=== PATIENT | male | born 1950 | race Caucasian/White ===

== ENCOUNTER 2023-05-28 10:51 | Outpatient (AMB) | payer OTHER, SELFPAY ==
--- NOTE | 2023-05-28 11:05 | MHC.PC.OV ---
Vital Signs 05/28/23 11:06 Height 5 ft 9 in Weight 182 lb BMI 26.9 BP 110/62 Blood Pressure Location Rt brachial Position Sitting Pulse 69 Pulse Source Pulse Oximeter Pulse Oximetry (%) 97 Oxygen Delivery Method Room Air Intake Visit Reasons: Discuss Medical Concerns Intake Note: Pt is here today for a follow up visit. Allergies No Known Allergies Allergy (Verified 05/28/23 11:09) Medication List - Last Reconciled 05/28/23 by Leni Resendez MD aspirin (Adult Low Dose Aspirin) 81 mg PO DAILY ketoconazole 2% 1 appl topical 3XW lisinopril 5 mg PO DAILY metoprolol tartrate 12.5 mg PO BID pantoprazole 20 mg PO DAILY rosuvastatin 10 mg PO DAILY Tobacco use date assessed: 05/28/23 Fall risk assessment: No Falls in past year Last assessed Fall Risk: 05/28/23 Dental Screening Dental Screen Date: 05/28/23 Did you have a dental visit in the last 12 months?: Yes Did you have a dental problem in the last 6 months where you did not have access to dental care?: No Was dental information given to patient?: Patient has dentist HPI Discuss Medical Concerns HPI Details Patient presents for the follow-up on hypertension hyperlipidemia, he complains of chronic bilateral lower extremities cramps and pain after walking longer distance. Patient denies any weakness or numbness in lower extremities but reports chronic lower back discomfort and stiffness after prolonged rest. [facility] Medical History (Updated 05/28/23 @ 11:41 by Leni Resendez MD) CAD (coronary artery disease) Knee pain, bilateral Knee pain BPH (benign prostatic hyperplasia) Thyroid nodule Goiter Hyperlipidemia HTN (hypertension) MGUS (monoclonal gammopathy of unknown significance) Low back pain Surgical History H/O colonoscopy Family History Father No problems noted. Mother No problems noted. Social History Housing: House Alcohol intake: never Patient Tobacco Use Status: Never used Tobacco e-Cigarette/Vaping Use: Never Used Current occupational status: employed Cognitive needs: No Hearing needs: No Vision needs: Yes Questionnaire PHQ-9 Over the last 2 weeks, how often have you been bothered by any of the following problems? 1. Little interest or pleasure in doing things: not at all 2. Feeling down, depressed, or hopeless: not at all 3. Trouble falling or staying asleep, or sleeping too much: not at all 4. Feeling tired or having little energy: not at all 5. Poor appetite or overeating: not at all 6. Feeling bad about yourself - or that you are a failure or have let yourself or your family down: not at all 7. Trouble concentrating on things, such as reading the newspaper or watching television: not at all 8. Moving or speaking so slowly that other people could have noticed. Or the opposite - being so fidgety or restless that you have been moving around a lot more than usual: not at all 9. Thoughts that you would be better off or of hurting yourself in some way: not at all Total score: 0 Depression Screening Interpretation: Negative Depression Screening Done: Yes Source: Developed by Drs. Oscar Mccray, Liliam Chicas, Nilesh Hernandez and colleagues, with an educational bhumika from [email or web address]. Thrive Questionnaire Date Thrive assessed: 05/28/23 I am a: Patient What is your living situation today?: I have a steady place to live Within the past 12 months, did the food you bought not last and you didn't have the money to get more?: Never true Within the past 12 months, did you worry whether your food would run out before you got money to buy more?: Never true Do you have trouble paying for medicines?: No Do you have trouble getting transportation to medical appointments?: No Do you have trouble paying your heating and electricity bill?: No Do you have trouble taking care of your child, family member or friend?: No Do you have trouble with day-to-day activities such as bathing, preparing meals, shopping, managing finances, etc.?: No Are you currently unemployed and looking for a job?: No Are you interested in more education?: No Please select the resources that you would like help with: None Currently or been in a relationship where the following occur: no concerns reported AUDIT C Alcohol Use Questionnaire (AUDIT-C) 1. How often do you have a drink containing alcohol?: Never 3. How often do you have six or more drinks on one occasion?: Never Total Score: 0 JEM-7 AMB Questionnaire JEM-7 Date JEM - 7 assessed: 05/28/23 Feeling nervous, anxious, or on edge: 0 = Not at all Not being able to stop or control worryin = Not at all Worrying too much about different things: 0 = Not at all Trouble relaxin = Not at all Being so restless that it is hard to sit still: 0 = Not at all Becoming easily annoyed or irritable: 0 = Not at all Feeling afraid as if something awful might happen: 0 = Not at all Total JEM-7 score (0-4 normal; 5-9 mild; 10-14 moderate; 15-21 severe): 0 Source: Developed by Drs. Oscar Mccray, Liliam Chicas, Nilesh Hernandez and colleagues, with an educational bhumika from [email or web address]. Review of Systems Const All systems reviewed & are unremarkable except as noted in HPI and below Reports no additional complaints Eyes Reports no additional complaints ENT Reports no additional complaints Card Reports no additional complaints Resp Reports no additional complaints GI Reports no additional complaints Reports no additional complaints Physical exam (Primary Care) Vital Signs: Last Vital Signs Pulse 69 05/28/23 11:06 BP 110/62 05/28/23 11:06 Pulse Ox 97 05/28/23 11:06 Oxygen Delivery Method Room Air 05/28/23 11:06 BMI result Body Mass Index 26.9 Tobacco/Smoking Status: Tobacco use Status Tobacco use date assessed 05/28/23 05/28/23 11:12 Patient Tobacco Use Status Never used Tobacco 05/28/23 11:12 e-Cigarette/Vaping Use Never Used 05/28/23 11:08 PHQ-9: PHQ-9 Score PHQ-9: Total score 0 05/28/23 11:42 Depression Screening Interpretation: Negative Thrive Assessment: Date of Thrive Assessment Date Thrive assessed 05/28/23 05/28/23 11:12 Currently or been in a relationship where the following occur: no concerns reported Const General: no acute distress HENMT Head: Yes normal to inspection Throat: Yes posterior oropharynx normal Eyes General: appearance normal, both eyes and all related structures Neck Neck: Yes no lymphadenopathy and Yes supple Resp Effort & Inspection: normal respiratory effort Auscultation: clear to auscultation bilaterally Cardio Rhythm: regular rhythm Heart sounds: S1 normal heart sound present and S2 normal heart sound present Peripheral pulses: posterior tibial pulses present (weak bilateral ) GI Inspection: Yes normal to inspection Palpation (GI): Soft to palpation Assessment and Plan Assessment & Plan (1) Hyperglycemia: Code(s): R73.9 - Hyperglycemia, unspecified Plan: ADA diet regular physical activity discussed with the patient check A1c and return in 6 months for physical (2) Thyroid nodule: Comment: s/p BX 2019, f/u Dr. Chang Code(s): E04.1 - Nontoxic single thyroid nodule Plan: Follow-up with endocrinology (3) Annual physical exam: Code(s): Z00.00 - Encounter for general adult medical examination without abnormal findings (4) CAD (coronary artery disease): Comment: s/p CATARINO for LCx 12/2019. f/u [facility] Code(s): I25.10 - Atherosclerotic heart disease of [place] coronary artery without angina pectoris Plan: Continue current medications (5) Claudication: Code(s): I73.9 - Peripheral vascular disease, unspecified Plan: Obtain arterial Doppler to evaluate for peripheral vascular disease Orders: Orders Comprehensive [place]. Panel Fast Today E04.1 - Nontoxic single thyroid nodule, I25.10 - Atherosclerotic heart disease of [place] coronary artery without angina pectoris, R73.9 - Hyperglycemia, unspecified, Z00.00 - Encounter for general adult medical examination without abnormal findings PSA,Total (Free>4and<10) Today E04.1 - Nontoxic single thyroid nodule, I25.10 - Atherosclerotic heart disease of [place] coronary artery without angina pectoris, R73.9 - Hyperglycemia, unspecified, Z00.00 - Encounter for general adult medical examination without abnormal findings Hemoglobin A1c Today E04.1 - Nontoxic single thyroid nodule, I25.10 - Atherosclerotic heart disease of [place] coronary artery without angina pectoris, R73.9 - Hyperglycemia, unspecified, Z00.00 - Encounter for general adult medical examination without abnormal findings Microalbumin, Random (w Creat) Today E04.1 - Nontoxic single thyroid nodule, I25.10 - Atherosclerotic heart disease of [place] coronary artery without angina pectoris, R73.9 - Hyperglycemia, unspecified, Z00.00 - Encounter for general adult medical examination without abnormal findings US arterial duplex LE BI Today I73.9 - Peripheral vascular disease, unspecified Lipid Panel Today E04.1 - Nontoxic single thyroid nodule, I25.10 - Atherosclerotic heart disease of [place] coronary artery without angina pectoris, R73.9 - Hyperglycemia, unspecified, Z00.00 - Encounter for general adult medical examination without abnormal findings Complete Blood Count Auto Diff Today E04.1 - Nontoxic single thyroid nodule, I25.10 - Atherosclerotic heart disease of [place] coronary artery without angina pectoris, R73.9 - Hyperglycemia, unspecified, Z00.00 - Encounter for general adult medical examination without abnormal findings Coding Level of Care Code Est Pt Level 4 (58511) Diagnoses Hyperglycemia R73.9 Thyroid nodule E04.1 Annual physical exam Z00.00 CAD (coronary artery disease) I25.10 Claudication I73.9
[2023-05-28 11:06] VITALS: BP 110/62; PULSE 69; O2SAT 97; BMI 26.9
== END 2023-05-28 12:19 | disposition home or self-care (01) ==
PROVIDERS: PCP Internal Medicine; Visit Provider Internal Medicine
DX: R73.9 Hyperglycemia, unspecified (principal); E04.1 Nontoxic single thyroid nodule; I73.9 Peripheral vascular disease, unspecified; Z00.00 Encounter for general adult medical examination without abnormal findings; I25.10 Atherosclerotic heart disease of native coronary artery without angina pectoris
CPT/HCPCS: 99214

== ENCOUNTER 2023-06-28 07:56 | Outpatient (REF) | payer OTHER, SELFPAY ==
[2023-06-28 11:35] LABS: MANUAL DIFF FLAG NO
[2023-06-28 11:38] LABS: Basophils Percent Auto 0.6 % (0-2); Eosinophils Absolute Auto 0.3 X10*3/uL (0.0-0.4); Eosinophils Percent Auto 4.5 % (0-4); Hematocrit 42.2 % (42.0-52.0); Hemoglobin 14.2 g/dl (14.0-18.0); Imm Gran Abs Auto 0.01 X10*3/uL (0.00-0.03); Imm Gran Pct Auto 0.2 % (0.0-0.4); Lymphocytes Percent Auto 31.2 % (20-40); Mean Corpuscular HGB Conc 33.6 g/dl (31.0-36.0); Mean Corpuscular Hemoglobin 30.1 pg (27.0-33.0); Mean Corpuscular Volume 89.4 fL (80.0-98.0); Mean Platelet Volume 11.4 fL (9.4-12.4); Monocytes Absolute Auto 0.5 X10*3/uL (0.1-1.2); Monocytes Percent Auto 7.2 % (2-11); Neutrophils Absolute Auto 3.5 x10*3/uL (2.0-8.3); Neutrophils Percent Auto 56.3 % (45-73); Platelet Count 200 X10*3/uL (160-400); Red Blood Count 4.72 X10*6/uL (4.60-5.80); Red Cell Distribution Width 12.1 % (11.0-16.0); White Blood Count 6.3 X10*3/uL (4.8-10.8)
[2023-06-28 11:46] LABS: Estimated Average Glucose 117 mg/dL; Hemoglobin A1c % 5.7 % (<6.0)
[2023-06-28 12:18] LABS: Alanine Aminotransferase 32 U/L (0-40); Albumin Level 4.2 g/dL (3.5-5.0); Alkaline Phosphatase 67 U/L (39-117); Anion Gap 12 (12-20); Aspartate Amino Transferase 29 U/L (5-37); Bilirubin Total 0.7 mg/dL (0.0-1.0); Blood Urea Nitrogen 13 mg/dL (9-16); Calcium 9.5 mg/dL (8.4-10.2); Carbon Dioxide 25 mmol/L (22-29); Chloride 106 mmol/L (96-108); Cholesterol 150 mg/dL (<200); Estimated Glomerular Filt Rate > 60; Glucose Fasting 95 mg/dL (60-99); HDL Cholesterol 47 mg/dL (>40); LDL Cholesterol Calculated 90 mg/dL (<100); PSA,Total (Free>4and<10) 3.23 ng/mL (0.00-4.00); Potassium 4.1 mmol/L (3.3-5.1); Sodium 139 mmol/L (135-145); Total Protein 7.7 g/dL (6.5-8.0); Triglycerides 67 mg/dL (<150)
[2023-06-28 12:28] LABS: TSH reflex Free T4 0.83 uIU/mL (0.32-4.0)
[2023-06-28 12:34] LABS: Creatinine Urine 110.92 mg/dL; Microalbum/Creatinine Ratio Ur 8.1 ug/mg cr (<30)
== END 2023-06-28 07:57 | disposition home or self-care (01) ==
LOC: HO.HMGCLDS 07:56
PROVIDERS: PCP Internal Medicine; Referring Provider Internal Medicine; Visit Provider Internal Medicine
DX: Z00.00 Encounter for general adult medical examination without abnormal findings (principal); Z12.5 Encounter for screening for malignant neoplasm of prostate; R73.9 Hyperglycemia, unspecified; I25.10 Atherosclerotic heart disease of native coronary artery without angina pectoris; E04.1 Nontoxic single thyroid nodule
CPT/HCPCS: 36415; 80053; 80061; 82043; 82570; 83036; 84153; 84443; 85025

== ENCOUNTER 2023-07-01 10:21 | Outpatient (REF) | payer OTHER, SELFPAY ==
--- NOTE | ~2023-07-01 | US_ITS ---
EXAMINATION: NONINVASIVE ASSESSMENT OF THE ARTERIES OF BOTH LOWER EXTREMITIES INCLUDING BILATERAL LOWER EXTREMITY DUPLEX. CLINICAL INFORMATION: Peripheral vascular disease COMPARISON: None TECHNIQUE: duplex Doppler techniques with wave form analysis and measurement of velocities in the common femoral, profunda femoral, superficial femoral, popliteal, tibial and peroneal arteries. The study was performed only at rest. FINDINGS: RIGHT LEG Common femoral artery: 95 cm/s, Multiphasic Profunda femoris artery: 63 cm/s, Multiphasic Superficial femoral artery (proximal): 93 cm/s, Multiphasic Superficial femoral artery (mid): 105 cm/s, Multiphasic Superficial femoral artery (distal): 95 cm/s, Multiphasic Proximal Popliteal artery: 61 cm/s, Multiphasic Mid posterior tibial artery: 106 cm/s, Multiphasic LEFT LEG: Common femoral artery: 107 cm/s, Multiphasic Profunda femoris artery: 83 cm/s, Multiphasic Superficial femoral artery (proximal): 95 cm/s, Multiphasic Superficial femoral artery (mid): 103 cm/s, Multiphasic Superficial femoral artery (distal): 83 cm/s, Multiphasic Proximal Popliteal artery: 67 cm/s, Multiphasic Mid posterior tibial artery: 104 cm/s, Multiphasic US/US arterial duplex LE BI IMPRESSION: No hemodynamically significant stenosis in the bilateral lower extremities.
== END 2023-07-01 10:22 | disposition home or self-care (01) ==
LOC: HO.US 10:21
PROVIDERS: PCP Internal Medicine; Visit Provider Internal Medicine
DX: I73.9 Peripheral vascular disease, unspecified (principal)
CPT/HCPCS: 93925

== ENCOUNTER 2024-02-12 11:58 | Outpatient (AMB) | payer OTHER, SELFPAY ==
[2024-02-12 12:23] VITALS: BP 112/66; PULSE 62; O2SAT 96; BMI 26.5
--- NOTE | 2024-02-12 12:23 | A.OFFPC_ITS ---
Vital Signs 02/12/24 12:23 Height 5 ft 9 in Weight 179 lb 4 oz BMI 26.5 BP 112/66 Blood Pressure Location Rt brachial Position Sitting Pulse 62 Pulse Source Pulse Oximeter Pulse Oximetry (%) 96 Oxygen Delivery Method Room Air Intake Visit Reasons: PE Allergies No Known Allergies Allergy (Verified 02/12/24 12:24) Medication List - Last Reconciled 02/12/24 by Leni Resendez MD aspirin (Adult Low Dose Aspirin) 81 mg PO DAILY ketoconazole 2% 1 appl topical 3XW lisinopril 5 mg PO DAILY metoprolol tartrate 12.5 mg PO BID pantoprazole 20 mg PO DAILY rosuvastatin 10 mg PO DAILY Tobacco use date assessed: 02/12/24 Fall risk assessment: No Falls in past year Last assessed Fall Risk: 02/12/24 Dental Screening Dental Screen Date: 02/12/24 Did you have a dental visit in the last 12 months?: Yes Did you have a dental problem in the last 6 months where you did not have access to dental care?: No Was dental information given to patient?: Patient has dentist HPI PE HPI Details Pt presents for PE. Pt reports intermitent leg cramps up to 2 a week. Pt reports episodes of feeling anxious and nightmares 2 x a month. Pt denies depression or insomnia. PFSH Medical History CAD (coronary artery disease) Knee pain, bilateral Knee pain BPH (benign prostatic hyperplasia) Thyroid nodule Goiter Hyperlipidemia HTN (hypertension) MGUS (monoclonal gammopathy of unknown significance) Low back pain Surgical History H/O colonoscopy Family History Father No problems noted. Mother No problems noted. Social History Housing: House Alcohol intake: never Patient Tobacco Use Status: Never used Tobacco e-Cigarette/Vaping Use: Never Used Current occupational status: employed Cognitive needs: No Hearing needs: No Vision needs: Yes Questionnaire Thrive Questionnaire Date Thrive assessed: 05/28/23 AUDIT C Alcohol Use Questionnaire (AUDIT-C) 1. How often do you have a drink containing alcohol?: Never 3. How often do you have six or more drinks on one occasion?: Never Total Score: 0 Score Reviewed/Action Taken: Yes JEM-7 AMB Questionnaire JEM-7 Date JEM - 7 assessed: 05/28/23 Source: Developed by Drs. Oscar Mccray, Liliam Chicas, Nilesh Hernandez and colleagues, with an educational bhumika from [employer]. Review of Systems Const All systems reviewed & are unremarkable except as noted in HPI and below Reports no additional complaints Eyes Reports no additional complaints ENT Reports no additional complaints Card Reports no additional complaints Resp Reports no additional complaints GI Reports no additional complaints Reports no additional complaints Physical exam (Primary Care) Vital Signs: Last Vital Signs Pulse 62 02/12/24 12:23 BP 112/66 02/12/24 12:23 Pulse Ox 96 02/12/24 12:23 Oxygen Delivery Method Room Air 02/12/24 12:23 BMI result Body Mass Index 26.5 Tobacco/Smoking Status: Tobacco use Status Tobacco use date assessed 02/12/24 02/12/24 12:25 Patient Tobacco Use Status Never used Tobacco 02/12/24 12:25 e-Cigarette/Vaping Use Never Used 02/12/24 12:25 Thrive Assessment: Date of Thrive Assessment Date Thrive assessed 05/28/23 02/12/24 12:25 Const General: no acute distress HENMT Head: Yes normal to inspection General nose exam: Normal external nose present Throat: Yes posterior oropharynx normal Eyes General: appearance normal, both eyes and all related structures Neck Neck: Yes no lymphadenopathy and Yes supple Resp Effort & Inspection: normal respiratory effort Auscultation: clear to auscultation bilaterally Cardio Rhythm: regular rhythm Heart sounds: S1 normal heart sound present and S2 normal heart sound present GI Inspection: Yes normal to inspection Palpation (GI): Soft to palpation Percussion: Yes normal to percussion Auscultation: normal bowel sounds Extrem General: Yes no clubbing, cyanosis or edema Assessment and Plan Assessment & Plan (1) Annual physical exam: Code(s): Z00.00 - Encounter for general adult medical examination without abnormal findings Plan: well balanced diet, regular exercise, up to date with colonoscopy (2) Hyperglycemia: Code(s): R73.9 - Hyperglycemia, unspecified Plan: ADA diet, exercise, repeat A1C (3) CAD (coronary artery disease): Comment: s/p CATARINO for LCx 12/2019. f/u [facility] Cardiology Code(s): I25.10 - Atherosclerotic heart disease of [place] coronary artery without angina pectoris Plan: f/u with cardiology (4) MGUS (monoclonal gammopathy of unknown significance): Comment: f/u Hematology MMG Code(s): D47.2 - Monoclonal gammopathy Plan: f/u with hematology (5) Anxiety: Code(s): F41.9 - Anxiety disorder, unspecified Plan: Stress management mindfulness discussed with the patient. He will try buspirone as needed for episodic anxiety. Patient is not interested in couseling Orders: Orders Magnesium Today I25.10 - Atherosclerotic heart disease of [place] coronary artery without angina pectoris, R73.9 - Hyperglycemia, unspecified, Z00.00 - Encounter for general adult medical examination without abnormal findings Hemoglobin A1c Today I25.10 - Atherosclerotic heart disease of [place] coronary artery without angina pectoris, R73.9 - Hyperglycemia, unspecified Complete Blood Count Auto Diff 1 Year I25.10 - Atherosclerotic heart disease of [place] coronary artery without angina pectoris, R73.9 - Hyperglycemia, unspecified, Z00.00 - Encounter for general adult medical examination without abnormal findings PSA,Total (Free>4and<10) 1 Year I25.10 - Atherosclerotic heart disease of [place] coronary artery without angina pectoris, R73.9 - Hyperglycemia, unspecified, Z00.00 - Encounter for general adult medical examination without abnormal findings Comprehensive [place]. Panel Fast Today I25.10 - Atherosclerotic heart disease of [place] coronary artery without angina pectoris, R73.9 - Hyperglycemia, unspecified, Z00.00 - Encounter for general adult medical examination without abnormal findings Lipid Panel Today I25.10 - Atherosclerotic heart disease of [place] coronary artery without angina pectoris, R73.9 - Hyperglycemia, unspecified, Z00.00 - Encounter for general adult medical examination without abnormal findings Vitamin B12 and Folate Today Z00.00 - Encounter for general adult medical examination without abnormal findings Hemoglobin A1c 1 Year I25.10 - Atherosclerotic heart disease of [place] coronary artery without angina pectoris, R73.9 - Hyperglycemia, unspecified, Z00.00 - Encounter for general adult medical examination without abnormal findings Comprehensive [place]. Panel Fast 1 Year I25.10 - Atherosclerotic heart disease of [place] coronary artery without angina pectoris, R73.9 - Hyperglycemia, unspecified, Z00.00 - Encounter for general adult medical examination without abnormal findings Lipid Panel 1 Year I25.10 - Atherosclerotic heart disease of [place] coronary artery without angina pectoris, R73.9 - Hyperglycemia, unspecified, Z00.00 - Encounter for general adult medical examination without abnormal findings UA w Microscopic 1 Year I25.10 - Atherosclerotic heart disease of [place] coronary artery without angina pectoris, R73.9 - Hyperglycemia, unspecified, Z00.00 - Encounter for general adult medical examination without abnormal findings Microalbumin, Random (w Creat) 1 Year I25.10 - Atherosclerotic heart disease of [place] coronary artery without angina pectoris, R73.9 - Hyperglycemia, unspecified, Z00.00 - Encounter for general adult medical examination without abnormal findings Medications: New buspirone 5 mg PO .qd 30 tabs 1RF buspirone 5 mg PO BID 30 tabs 1RF Coding Level of Care Code Est Pt Prev Care >65y(65067) Diagnoses Annual physical exam Z00.00 Hyperglycemia R73.9 CAD (coronary artery disease) I25.10 MGUS (monoclonal gammopathy of unknown significance) D47.2 Anxiety F41.9
== END 2024-02-12 13:56 | disposition home or self-care (01) ==
PROVIDERS: PCP Internal Medicine; Visit Provider Internal Medicine
DX: Z00.00 Encounter for general adult medical examination without abnormal findings (principal); R73.9 Hyperglycemia, unspecified; I25.10 Atherosclerotic heart disease of native coronary artery without angina pectoris; D47.2 Monoclonal gammopathy; F41.9 Anxiety disorder, unspecified

== ENCOUNTER → 2024-02-12 11:58 | Outpatient (BNVA) | payer OTHER, SELFPAY | PROVIDERS: PCP Internal Medicine; Visit Provider Internal Medicine | DX: Z00.00 Encounter for general adult medical examination without abnormal findings (principal); R73.9 Hyperglycemia, unspecified; I25.10 Atherosclerotic heart disease of native coronary artery without angina pectoris; D47.2 Monoclonal gammopathy; F41.9 Anxiety disorder, unspecified ==

== ENCOUNTER 2024-12-30 10:13 | Outpatient (AMB) | payer MEDICARE, SELFPAY ==
[2024-12-30 10:20] VITALS: BP 100/60; PULSE 62; TEMP 36.6; O2SAT 98; BMI 26.8
--- NOTE | 2024-12-30 10:20 | AM.OFFWIN_ITS ---
Intake Vital Signs 12/30/24 10:20 Height 5 ft 9 in Weight 181 lb 6 oz BMI 26.8 BP 100/60 Blood Pressure Location Rt brachial Position Sitting Pulse 62 Pulse Source Pulse Oximeter Temp 97.8 F Temp Source Oral Pulse Oximetry (%) 98 Oxygen Delivery Method Room Air Intake Visit Reasons: Abdomen pain Intake Note: Patient presents with abdominal pain when pressing on stomach, times 3 days. 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 He does endorse some Constipation and bloating. S/P Bilateral Inguinal Hernia repair with Mesh few years back. Denies Nausea, vomiting or Diarrhea. Denies Fevers or chills. Denies Urinary symptoms. Pt asking for CT/MRI abdomen today. [facility] Medical History (Updated 12/30/24 @ 11:06 by Vandana Murrieta NP) Generalized abdominal pain CAD (coronary artery disease) Knee pain, bilateral Knee pain BPH (benign prostatic hyperplasia) Thyroid nodule Goiter Hyperlipidemia HTN (hypertension) MGUS (monoclonal gammopathy of unknown significance) Low back pain Surgical History H/O colonoscopy Family History Father No problems noted. Mother No problems noted. Social History Housing: House Alcohol intake: never Patient Tobacco Use Status: Never used Tobacco e-Cigarette/Vaping Use: Never Used Current occupational status: employed Cognitive needs: No Hearing needs: No Vision needs: Yes Review of Systems Const All systems reviewed & are unremarkable except as noted in HPI and below Physical Exam Vital Signs: Last Vital Signs Temp 97.8 F 12/30/24 10:20 Pulse 62 12/30/24 10:20 BP 100/60 12/30/24 10:20 Pulse Ox 98 12/30/24 10:20 Oxygen Delivery Method Room Air 12/30/24 10:20 BMI result Body Mass Index 26.8 Const General: comfortable and no acute distress Nutritional Appearance: overweight Orientation/consciousness: patient oriented x3 GI Inspection: Yes Abdominal panniculus present and Yes obesity Palpation (GI): Soft to palpation, not firm, Tenderness to palpation present (GI) in the epigastrum, in the LUQ and suprapubicly, no guarding, not rigid, No hepatosplenomegaly present and Hernia present umbilical (Small Hernia) Auscultation: normal bowel sounds Rectal Exam - Male: Yes deferred Neuro General: patient oriented x3, gait normal and moves all extremities Psych Speech and movement: Normal speech and movement present Assessment & Plan Assessment & Plan (1) Generalized abdominal pain: Code(s): R10.84 - Generalized abdominal pain Plan: Will treat for constipation for few days to see if pain resolves. Advised on High Fiber Diet F/U with PCP for CT/MRI if needed. Medications: New pantoprazole 20 mg PO DAILY 30 tabs 0RF R10.84 - Generalized abdominal pain docusate sodium (Dulcolax Stool Softener (docusate)) 100 mg PO BID 30 caps 0RF R10.84 - Generalized abdominal pain Coding Level of Care Code Est Pt Level 4 (17683) Diagnoses Generalized abdominal pain R10.84 Time Spent (min) 20
--- OUTSIDE RECORDS SUMMARY | 2024-12-30 10:42 | XMS_ITS | Clinical Summary ---
Author Organization [facility] Address [address] [place] [address] Care Team Providers Care Acid Loader Name Role Phone Leni Resendez MD Primary Care Provider [phone] Allergies No known active allergies Medications Medication Sig Dispensed Refills Start Date End Date Status omeprazole (PRILOSEC) 20 MG capsule Take 1 capsule (20 mg total) by mouth daily. 0 Active pantoprazole (PROTONIX) 40 MG tablet Take 1 tablet (40 mg total) by mouth every morning on an empty stomach. 0 Active lisinopril (PRINIVIL,ZESTRIL) tablet 5 mg Take 1 tablet (5 mg total) by mouth daily. 0 Active aspirin EC 81 MG tablet Take 1 tablet (81 mg total) by mouth daily. 0 Active rosuvastatin (CRESTOR) tablet 10 mg Take 1 tablet (10 mg total) by mouth daily. 0 Active Active Problems Problem Noted Date Diagnosed Date MGUS (monoclonal gammopathy of unknown significa nce) 07/10/2017 Essential hypertension 07/10/2017 Gastroesophageal reflux disease without esophagi tis 07/10/2017 Degenerative disc disease, lumbar 07/10/2017 Social History Tobacco Use Types Packs/Day Years Used Date Smoking Tobacco: Never Smokeless Tobacco: Never Sex and Gender Information Value Date Recorded Sex Assigned at Not on file Gender Identity Not on file Sexual Orientation Not on file Job Start Date Occupation Industry Not on file Not on file Not on file Last Filed Vital Signs Vital Sign Reading Time Taken Comments Blood Pressure 121/64 01/07/2024 11:54 AM EDT Pulse 82 01/07/2024 11:54 AM EDT Temperature 36.9 C (98.4 F) 01/07/2024 11:54 AM EDT Respiratory Rate - - Oxygen Saturation 96% 01/07/2024 11: 54 AM EDT Inhaled Oxygen Concentration - - Weight 81.6 kg (179 lb 12.8 oz) 024 11:54 AM EDT Height 175.3 cm (5' 9 ) 12/07/2020 11:1 7 AM EDT Body Mass Index 26.55 12/07/2020 11:17 AM EDT Plan of Treatment Health Maintenance Due Date Last Done Comments Hepatitis C Screening 1950 COVID-19 Vaccine (#1) 11/17/1955 Pneumococcal Vaccine (1 of 2 - PCV) 1956 Depression Screening 1962 Preventative Health Evaluation 1968 Shingrix-Zoster Vaccine (1 of 2) 1969 Colon Cancer Screening (Colonoscopy) 11/17/1995 Fall Risk Assessment 11/17/2015 DTap / Tdap / Td (2 - Td or Tdap) 01/20/2025 015 Influenza Vaccine (#1) 2025 RSV Adult > 60+ Yrs or Pregn ant (1 - 1-dose 75+ series) 2025 Hepatitis B Vaccines Aged Out No long er eligible based on patient's age to complete this topic RSV Ped < 20 months Aged Out No longe r eligible based on patient's age to complete this topic Care Teams Acid Loader Relationship Specialty Start Date End Date Leni Resendez MD PCP - General Rehabilitation Liaison 01/22/17
--- OUTSIDE RECORDS SUMMARY | 2024-12-30 10:42 | XMS_ITS | Clinical Summary ---
Author Organization [facility] [address] [facility] Address [address] [place] [address] Phone Care Team Providers Care Orthopaedic Physician Assistant Name Role Phone Leni Resendez MD Primary Care Provider [phone] Allergies Active Allergy Reactions Criticality Noted Date Comments Iodinated Contrast Media 11/18/2024 Medications omeprazole (PriLOSEC) [address] capsule Take 20 mg by mouth daily. Active aspirin 81 mg EC tablet Take 1 tablet (81 mg total) by mouth daily. - Oral Active lisinopriL (PRINIVIL,ZESTR IL) 5 mg tablet Take 1 tablet (5 mg total) by mouth daily. - Oral Active pantoprazole (PROTONIX) 40 mg EC tablet Take 1 tablet (40 mg total) by mouth every morning on an empty stomach. - Oral Active rosuvastatin (CRESTOR) 10 mg tablet Take 1 tablet (10 mg total) by mouth daily. - Oral Active atorvastatin (LIPITOR) 80 mg tablet Take 1 tablet (80 mg total) by mouth daily. Active metoprolol tartrate 100 mg/9 mL in compounding vehicle suspension no.19 (ORA-BLEND) suspension Take 9 mL (100 mg total) by mouth. 1 Active metoprolol succinate (TOPROL-XL) 25 mg 24 hr tablet Take 1 tablet (25 mg total) by mouth daily. Active polyethylene glycol (Golytely) 236-22.74-6.74 -5.86 gram solution Take 4L by mouth once for one dose. May substitue any PEG. Starting at 6PM the night before your procedure drink 1 8oz glasses at your own pace until you complete half of the gallon. Finish 2nd half of the gallon 5 hours before your procedure. 4000 mL 5 Active bisacodyL (DULCOLAX) 5 mg EC tablet Take 2 tablets by mouth right before beginning bowel prep. See instructions provided by the office 2 tablet 5 Active Active Problems Problem Noted Date Diagnosed Date Fatty liver 09/30/2024 Degenerative disc disease, lumbar 07/10/2017 Essential hypertension 07/10/2017 Gastroesophageal reflux disease without esophagi tis 07/10/2017 MGUS (monoclonal gammopathy of unknown significa nce) 07/10/2017 Encounters Date Type Department Care Team Description 11/22/2024 Telephone Gastroenterology - [address] [phone] Alex Higginbotham MD 10/01/2024 Telephone Gastroenterology - [address] [facility] [address] [phone] Sabino George MD 09/30/2024 9:20 AM EDT Office Visit Gastroenterology - [address] [place] [address] [phone] Shivani Marie PA Colon cancer screening (Primary Dx); Gastroesophageal reflux disease, unspecified whether esophagitis present from Last 3 Months Surgical History Surgery Date Site/Laterality Comments MANDIBLE FRACTURE SURGERY PROCEDURE:MANDIBLE FRACTURE SURGERY ESOPHAGOGASTRODUODENOSCOPY 07/30/2021 Nonobstructing Schatzki ring, dilated ESOPHAGOGASTRODUODENOSCOPY 12/01/2012 COLONOSCOPY 09/22/2017 recall 5 years COLONOSCOPY 10/26/2014 COLONOSCOPY 07/17/2009 Medical History Medical History Date Comments GERD (gastroesophageal reflux disease) DX:GERD (gastroesophageal reflux disease) Monoclonal gammopathy DX:Monoclo nal gammopathy MGUS (monoclonal gammopathy of unknown significance) 07/10/2017 DX:MGUS (monoclonal gammopat hy of unknown significance) Essential hypertension 07/10/2017 DX:Essent ial hypertension Gastroesophageal reflux dise ase without esophagitis 07/10/2017 DX:Gastroesophageal reflux d isease without esophagitis Degenerative disc disease, lumbar 07/10/2017 DX:Degenerative disc disease, lumbar Colon polyp Helicobacter pylori gastritis 2012 Family History Medical History Relation Name Comments Colon cancer Neg Hx Social History Tobacco Use Types Packs/Day Years Used Date Smoking Tobacco: Never Smokeless Tobacco: Never Alcohol Use Standard Drinks/Week Comments Never 0 (1 standard drink = 0.6 oz pur e alcohol) Sex and Gender Information Value Date Recorded Sex Assigned at Not on file Legal Sex Male 1:28 PM EST Gender Identity Not on file Sexual Orientation Not on file Obstetrics History Last Filed Vital Signs Vital Sign Reading Time Taken Comments Blood Pressure 121/64 01/07/2024 11:54 AM EDT Sitting Right arm Pulse 82 01/07/2024 11:54 AM EDT Temperature - - Respiratory Rate - - Oxygen Saturation - - Inhaled Oxygen Concentration - - Weight 81.6 kg (180 lb) 09/30/2024 9:03 AM EDT Height 175.3 cm (5' 9 ) 09/30/2024 9:03 AM EDT Body Mass Index 26.58 09/30/2024 9:03 AM EDT Plan of Treatment Upcoming Encounters Date Type Department Care Team (Late st Contact Info) Description 01/06/2025 11:00 AM EDT Office Visit [facility] Hematology Oncology [address] [place] [phone] Lily Mccann MD [address] [place] [address] 02/07/2025 2:00 PM EDT Appointment [facility] Endoscopy [address] [place] [phone] Alex Higginbotham MD [address] [facility] [address] [place] [address] Health Maintenance Due Date Last Done Comments Pneumococcal Vaccine: 50+ Years (1 of 2 - PCV) 1969 Zoster Vaccines (1 of 2) 1969 COVID-19 Vaccine (3 - Pfizer risk series) 03/06/2021 02/06/2021, 01/16/2021 Cholesterol Screening (Lipid Panel) 04/23/2022 Falls Risk Assessment 04/23/2022 Hepatitis C Screening 04/23/2022 Medicare Annual Wellness Visit 04/23/2022 Social Influencers of Health Screening 04/23/2022 Hypertension/CHF/CAD Annual BMP Blood Test 05/19/2022 Depression Screening 05/26/2024 DTaP,Tdap,and Td Vaccines (3 - Td or Tdap) 01/20/2025 01/20/2015, 10/27/2009 Influenza Vaccine (#1) 2025 RSV Immunization Adult Patients (1 - 1-dose 75+ series) 2025 Colorectal Cancer Screening: Colonoscopy 12/23/2034 12/23/2024 HIB Vaccines Aged Out No longer eligi ble based on patient's age to complete this topic HPV Vaccines Aged Out No longer eligi ble based on patient's age to complete this topic Hepatitis A Vaccines Aged Out No long er eligible based on patient's age to complete this topic Hepatitis B Vaccines Aged Out No long er eligible based on patient's age to complete this topic IPV Vaccines Aged Out No longer eligi ble based on patient's age to complete this topic MMR Vaccines Aged Out No longer eligi ble based on patient's age to complete this topic Meningococcal ACWY Vaccine Aged Out N o longer eligible based on patient's age to complete this topic Meningococcal B Vaccine Aged Out No l onger eligible based on patient's age to complete this topic RSV Immunization Patients Under 20 months Aged Out No longer eligible b ased on patient's age to complete this topic Varicella Vaccines Aged Out No longer eligible based on patient's age to complete this topic Procedures Procedure Name Priority Date/Time Associated Diagnosis Comments COLONOSCOPY Routine 12/23/2024 3:35 PM EDT from Last 3 Months Results * COLONOSCOPY (12/23/2024 3:35 PM EDT) Anatomical Region Laterality Modality Endoscopy us Historical Provider GI~PROCEDURE ORDERABLES F inal Result from Last 3 Months Insurance MEDICARE [facility] Care Teams Orthopaedic Physician Assistant Relationship Specialty Start Date End Date Leni Resendez MD [address] [place] [phone] PCP - General Plate Former 01/22/17
--- OUTSIDE RECORDS SUMMARY | 2024-12-30 10:42 | XMS_ITS | Clinical Summary ---
Author Organization [facility] Address [address] [place] [id number] Phone Care Team Providers Care Invoice Checker Name Role Phone Leni Resendez MD Primary Care Provider [phone] Allergies No known active allergies Medications rosuvastatin (CRESTOR) 10 MG tablet Take 1 tablet by mouth every morning. 10/21/2022 Active pantoprazole (PROTONIX) 20 MG tablet Take 20 mg by mouth daily. Active lisinopril (PRINIVIL,ZESTRIL ) 5 MG tablet Take 5 mg by mouth daily. Active atorvastatin (LIPITOR) 80 MG tablet Take 80 mg by mouth daily. Active aspirin 81 MG EC tablet Take 81 mg by mouth daily. Active therapeutic multivitamin tablet Take 1 tablet by mouth daily. Active metoprolol succinate (TOPROL-XL) 25 MG 24 hr tablet Take 25 mg by mouth daily. Active Active Problems Problem Noted Date Diagnosed Date Nontoxic multinodular goiter 05/07/2023 Assessment & Plan (06/12/2024 6:27 PM EST): Patient with long history of thyroid nodules. 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 His right lower lobe thyroid nodule FNA in 2007 showed microfollicular pattern but low suspicion for cancer per pathologist. This nodule has increased in size and had a repeat biopsy in 02/2022 which was non diagnostic, showing only 1 group of follicular cells. The left lower pole nodule had a benign biopsy in 2007. Last ultrasound report dated 03/28/2023 reviewed again. Asymmetric thyroid, right lobe 23.7 cc, left lobe 12.4 cc. Stable right lower lobe 3.1 cm TR 2 nodule with cystic component. Stable left lower 1.5 cm TR 4 nodule with cystic component. Additional less than 1 cm nodule within the left lobe. Patient has some raspy voice within the last few months, clearing throat more frequently with history of GERD. He denies any compression symptoms in the thyroid bed. He is clinically and biochemically euthyroid. Last TSH 0.83 in 06/2023, not on treatment. -Repeat ultrasound in 1 year -Call if compression symptoms in the thyroid bed or symptoms of hypo or hyperthyroidism Assessment & Plan (05/20/2023 9:22 PM EST): Patient with long history of thyroid nodules. 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 His right lower lobe nodule FNA in 2007 showed microfollicular pattern but low suspicion for cancer per pathologist. This nodule has increased in size and had a repeat biopsy in 02/2022 which was nondiagnostic showing only 1 group of follicular cells. The left lower pole nodule had a benign biopsy in 2007. Last ultrasound on 03/28/2023 reviewed. Asymmetric thyroid right lobe 23.7 cc, left lobe 12.4 cc. Stable right lower lobe 3.1 cm TR 2 nodule with cystic component. Stable left lower 1.5 cm TR 4 nodule with cystic component. Additional less than 1 cm nodule within the left lobe. Patient denies any compression symptoms in the thyroid bed. He has new onset cold intolerance in the last 2 months and leg cramps. He seems clinically euthyroid but considering the symptoms would check TSH with next labs with PCP in 05/2023. Advised patient to call for results. Repeat ultrasound in 2 years. Thyroid nodule 12/20/2022 Assessment & Plan (12/20/2022 8:30 PM EDT): Patient with long history of thyroid nodule. Unfortunately we did not have his old records to confirm at which side he had a biopsy. He recalls that the second biopsy was nondiagnostic about a year ago. Recently he is having some irritative cough, need to clear his throat and some raspy voice. He had nasal septum surgery years ago and he feels that he is not breathing through the nose properly. 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 On exam the left thyroid lobe is slightly enlarged without palpable nodule. In the right submandibular surgical scar there is arise to be subcutaneous mass palpable. I am not sure if this is a new finding or not. He is clinically euthyroid. I do not recall any abnormal TSH in the past. Plan to schedule thyroid and neck ultrasound. Patient will contact his ENT in regards to his nasal septum issues. Will obtain [facility] records. Social History Tobacco Use Types Packs/Day Years Used Date Smoking Tobacco: Never Smokeless Tobacco: Never Alcohol Use Standard Drinks/Week Comments Never 0 (1 standard drink = 0.6 oz pur e alcohol) Education Answer Date Recorded Are you interested in more education? Not on abdon e 12/05/2022 Are you concerned about learning? Not on file 12/05/2022 No 12/05/2022 No 12/05/2022 Digital Access Answer Date Recorded No 12/05/2022 No 12/05/2022 Reliable internet access at home? Not on file 12/05/2022 Device with a working camera? Not on file Sex and Gender Information Value Date Recorded Sex Assigned at Not on file Legal Sex Male 2:26 PM EDT Gender Identity Not on file Sexual Orientation Not on file Last Filed Vital Signs Vital Sign Reading Time Taken Comments Blood Pressure 120/70 05/27/2024 3:41 PM EST Pulse 67 05/27/2024 3:41 PM EST Temperature - - Respiratory Rate - - Oxygen Saturation 98% 05/07/2023 10:42 AM EST Inhaled Oxygen Concentration - - Weight 82.3 kg (181 lb 6.4 oz) 05/27/2024 3:41 P M EST Height 172.5 cm (5' 7.91 ) 05/27/2024 3:41 PM ES T Body Mass Index 27.65 05/27/2024 3:41 PM EST Plan of Treatment Upcoming Encounters Date Type Department Care Team (Late st Contact Info) Description 05/30/2025 9:00 AM EST Office Visit [facility] [address] [place] [address] [place] [address] Lisa Owen MD [address] [place] [phone] [email or web address] Health Maintenance Due Date Last Done Comments Adult Td,Tdap Booster 1950 CREATININE LEVEL 1950 LIPID PANEL 1950 POTASSIUM LEVEL 1950 DEPRESSION SCREENING 1962 HEPATITIS C SCREENING 1968 COLOGUARD 11/17/1995 COLONOSCOPY 11/17/1995 COLORECTAL CANCER SCREENING 11/17/1995 FIT TEST 11/17/1995 FOBT 11/17/1995 SIGMOIDOSCOPY 11/17/1995 VIRTUAL COLONOSCOPY 11/17/1995 PNEUMOCOCCAL VACCINES (50+ y ears) (1 of 1 - PCV) 2000 ZOSTER VACCINES (1 of 2) 2000 COVID-19 VACCINE ( - 2023-2 5 season) 2024 RSV VACCINE (1 - 1-dose 75+ series) 2025 SMOKING STATUS SCREENING (On ce After 26 Yrs) Completed 05/07/2023 HEPATITIS A VACCINES Aged Out No long er eligible based on patient's age to complete this topic HIB VACCINES Aged Out No longer eligi ble based on patient's age to complete this topic MENINGOCOCCAL VACCINES (ACWY) Aged Out No longer eligible based on patient's age to complete this topic MENINGOCOCCAL VACCINES (B) Aged Out N o longer eligible based on patient's age to complete this topic Medical Devices Not on file Insurance MEDICARE PART A & B [facility] MEDEX SUPPLEMENT MEDICARE PART A & B Member Subscriber Plan / Payer (Ef fective 2023-) Name:Joni Medina Member ID:[id number] Relation to Subscriber:Self Name:Joni Medina Subscriber ID:[id number] Payer ID:[id number] Group ID:Not on file Type:Medicare Address: [employer] [facility].[address] [address] [facility] MEDEX SUPPLEMENT MEDICARE PART A & B [employer] MEDEX SUPPLEMENT MEDICARE PART A & B [employer] SUPPLEMENT MEDICARE PART A & B [employer] MEDEX SUPPLEMENT MEDICARE PART A & B [employer] SUPPLEMENT Care Teams Invoice Checker Relationship Specialty Start Date End Date Leni Resendez MD [address] [place] [address] PCP - General Internal Medicine 11/22/22 Additional Source Comments The information contained in this document represents components of the legal health record. It is not the complete legal health record.[facility]
== END 2024-12-30 11:41 | disposition home or self-care (01) ==
PROVIDERS: PCP Internal Medicine; Visit Provider Nurse Practitioner Family
DX: R10.84 Generalized abdominal pain (principal)

== ENCOUNTER → 2024-12-30 10:13 | Outpatient (BNVA) | payer MEDICARE, SELFPAY | PROVIDERS: PCP Internal Medicine; Visit Provider Nurse Practitioner Family | DX: R10.84 Generalized abdominal pain (principal) | CPT/HCPCS: 99212 ==

== ENCOUNTER 2025-02-09 13:02 | Outpatient (AMB) | payer MEDICARE, SELFPAY ==
[2025-02-09 13:11] VITALS: BP 118/74; PULSE 63; RESP 18; TEMP 36.6; O2SAT 97; BMI 26.7
--- NOTE | 2025-02-09 13:11 | MHC.PC.OV ---
Vital Signs 02/09/25 13:11 Height 5 ft 9 in Weight 181 lb BMI 26.7 BP 118/74 Blood Pressure Location Lt brachial Position Sitting Respiration 18 Pulse 63 Pulse Source Pulse Oximeter Temp 97.9 F Temp Source Oral Pulse Oximetry (%) 97 Oxygen Delivery Method Room Air Intake Visit Reasons: Lump on Abdomain Intake Note: Pt is here today for a sick visit. Allergies No Known Allergies Allergy (Verified 12/30/24 10:25) Medication List - Last Reconciled 02/09/25 by Leni Resendez MD aspirin (Adult Low Dose Aspirin) 81 mg PO DAILY buspirone 5 mg PO DAILY docusate sodium (Dulcolax Stool Softener (docusate)) 100 mg PO BID ketoconazole 2% 1 appl topical 3XW lisinopril 5 mg PO DAILY metoprolol tartrate 12.5 mg PO BID rosuvastatin 10 mg PO DAILY Tobacco use date assessed: 02/09/25 Fall risk assessment: No Falls in past year Last assessed Fall Risk: 02/09/25 Dental Screening Dental Screen Date: 02/09/25 Did you have a dental visit in the last 12 months?: Yes Did you have a dental problem in the last 6 months where you did not have access to dental care?: No Was dental information given to patient?: Patient has dentist HPI Lump on Abdomain HPI Details Patient presents complaining of lower abdominal discomfort with intermittent sharp pain on and off for the last few weeks. He denies nausea vomiting fever chills change in bowel habits or urination hematochezia melena. Hypertension hyperlipidemia are controlled on current medications. Patient follows up with [facility] annually for coronary artery disease. [facility] Medical History (Updated 02/09/25 @ 14:39 by Leni Resendez MD) Generalized abdominal pain CAD (coronary artery disease) Knee pain, bilateral Knee pain BPH (benign prostatic hyperplasia) Thyroid nodule Goiter Hyperlipidemia HTN (hypertension) MGUS (monoclonal gammopathy of unknown significance) Low back pain Surgical History H/O colonoscopy Family History Father No problems noted. Mother No problems noted. Social History Housing: House Alcohol intake: never Patient Tobacco Use Status: Never used Tobacco e-Cigarette/Vaping Use: Never Used service: No Current occupational status: employed Cognitive needs: No Hearing needs: No Vision needs: Yes Questionnaire PHQ-9 Over the last 2 weeks, how often have you been bothered by any of the following problems? 1. Little interest or pleasure in doing things: not at all 2. Feeling down, depressed, or hopeless: not at all 3. Trouble falling or staying asleep, or sleeping too much: not at all 4. Feeling tired or having little energy: not at all 5. Poor appetite or overeating: not at all 6. Feeling bad about yourself - or that you are a failure or have let yourself or your family down: not at all 7. Trouble concentrating on things, such as reading the newspaper or watching television: not at all 8. Moving or speaking so slowly that other people could have noticed. Or the opposite - being so fidgety or restless that you have been moving around a lot more than usual: not at all 9. Thoughts that you would be better off or of hurting yourself in some way: not at all Total score: 0 Depression Screening Interpretation: Negative Depression Screening Done: Yes 73907 - PHQ-9 Billing: Yes Source: Developed by Drs. Oscar Mccray, Nilesh Staton and colleagues, with an educational bhumika from [email or web address]. Thrive Questionnaire Date Thrive assessed: 02/09/25 JEM-7 AMB Questionnaire JEM-7 Date JEM - 7 assessed: 05/28/23 Source: Developed by Drs. Oscar Mccray, Nilesh Staton and colleagues, with an educational bhumika from [email or web address]. Review of Systems Const All systems reviewed & are unremarkable except as noted in HPI and below Eyes Reports no additional complaints ENT Reports no additional complaints Card Reports no additional complaints Resp Reports no additional complaints GI Reports no additional complaints Reports no additional complaints Physical exam (Primary Care) Vital Signs: Last Vital Signs Temp 97.9 F 02/09/25 13:11 Pulse 63 02/09/25 13:11 Resp 18 02/09/25 13:11 BP 118/74 02/09/25 13:11 Pulse Ox 97 02/09/25 13:11 Oxygen Delivery Method Room Air 02/09/25 13:11 BMI result Body Mass Index 26.7 Tobacco/Smoking Status: Tobacco use Status Tobacco use date assessed 02/09/25 02/09/25 13:18 Patient Tobacco Use Status Never used Tobacco 02/09/25 13:13 e-Cigarette/Vaping Use Never Used 02/09/25 13:13 PHQ-9: PHQ-9 Score PHQ-9: Total score 0 02/09/25 13:40 Depression Screening Interpretation: Negative Thrive Assessment: Date of Thrive Assessment Date Thrive assessed 02/09/25 02/09/25 13:18 Const General: no acute distress HENMT Head: Yes normal to inspection Mouth: Normal oral and palatal mucosa present Neck Neck: Yes no lymphadenopathy and Yes supple Resp Effort & Inspection: normal respiratory effort Auscultation: clear to auscultation bilaterally Cardio Rhythm: regular rhythm Heart sounds: S1 normal heart sound present and S2 normal heart sound present GI Inspection: Yes normal to inspection Palpation (GI): Soft to palpation and Tenderness to palpation present (GI) in the LLQ and in the RLQ; with no rebound tenderness Percussion: Yes normal to percussion Auscultation: normal bowel sounds Coding Level of Care Code Est Pt Level 4 (89770) Diagnoses Sleep apnea G47.30 Abdominal pain R10.9 Diverticulitis K57.92 CAD (coronary artery disease) I25.10 MGUS (monoclonal gammopathy of unknown significance) D47.2 Additional Codes PHQ-9 - 39723 - PHQ-9 Billing: Yes ([id number]) Assessment & Plan Assessment & Plan (1) Sleep apnea: Code(s): G47.30 - Sleep apnea, unspecified Category: Medical Plan: For history of sleep apnea obtain sleep study (2) Abdominal pain: Code(s): R10.9 - Unspecified abdominal pain Category: Medical Plan: For persist abdominal pain obtain CT of the abdomen/pelvic to evaluate for diverticulitis. Patient will return for fasting blood work tomorrow (3) Diverticulitis: Code(s): K57.92 - Diverticulitis of intestine, part unspecified, without perforation or abscess without bleeding Category: Medical Plan: Check CT for diverticulitis (4) CAD (coronary artery disease): Comment: s/p CATARINO for x 12/2019. f/u [facility] Code(s): I25.10 - Atherosclerotic heart disease of [place] coronary artery without angina pectoris Category: Medical Plan: Continue current medications follow-up with the Cardiology (5) MGUS (monoclonal gammopathy of unknown significance): Comment: f/u Hematology [facility] Code(s): D47.2 - Monoclonal gammopathy Category: Medical Plan: Check CBC and plasma immunofixation Orders: Orders RT home sleep study Today G47.30 - Sleep apnea, unspecified CT abdomen pelvis w IV con Today K57.92 - Diverticulitis of intestine, part unspecified, without perforation or abscess without bleeding Immunofixation Pnl, Serum Today D47.2 - Monoclonal gammopathy Medications: Discontinued pantoprazole Discontinued Reason: Doctor's Order 20 mg PO DAILY 30 tabs 0RF R10.84 - Generalized abdominal pain
--- OUTSIDE RECORDS SUMMARY | 2025-02-09 16:32 | XMS_ITS | Encounter Summary ---
Author Organization [facility] Address [address] [place] [address] Care Team Providers Care Blacktop Spreader Name Role Phone Leni Resendez MD Primary Care Provider [phone] Encounter Details Date Type Department Care Team Description 12/07/2019 Nurse Only [facility] Oncology Services [address] [place] [address] Pedro Luis Loco RN Social History Tobacco Use Types Packs/Day Years Used Date Smoking Tobacco: Never Smokeless Tobacco: Never Sex and Gender Information Value Date Recorded Sex Assigned at Not on file Gender Identity Not on file Sexual Orientation Not on file Job Start Date Occupation Industry Not on file Not on file Not on file documented as of this encounter Plan of Treatment Not on file documented as of this encounter Visit Diagnoses Not on filedocumented in this encounter Care Teams Blacktop Spreader Relationship Specialty Start Date End Date Leni Resendez MD PCP - General Hr Specialist 01/22/17 documented as of this encounter
--- OUTSIDE RECORDS SUMMARY | 2025-02-09 16:32 | XMS_ITS | Clinical Summary ---
Author Organization [facility] Address [address] [place] [address] Care Team Providers Care Hall Supervisor Name Role Phone Leni Resendez MD Primary Care Provider [phone] Allergies No known active allergies Medications Medication [...] age to complete this topic Care Teams Hall Supervisor Relationship Specialty Start Date End Date Leni Resendez MD PCP - General Hearing Aid Technician 01/22/17
--- OUTSIDE RECORDS SUMMARY | 2025-02-09 16:32 | XMS_ITS | Clinical Summary ---
Author Organization [facility] Address [address] [place] [phone] Phone Care Team Providers Care Acetylene Operator Name Role Phone Leni Resendez MD Primary Care Provider [phone] Allergies No known active allergies Medications rosuvastatin [...] to his nasal septum issues. Will obtain [facility] records. Social History Tobacco Use Types Packs/Day [...] 9:00 AM EST Office Visit [facility] [address] [place] [address] [place] [address] Lisa Owen MD [address] [place] [id number] Health Maintenance Due Date Last Done Comments Adult Td,Tdap Booster 1950 CREATININE LEVEL 1950 LIPID PANEL 1950 POTASSIUM LEVEL 1950 DEPRESSION SCREENING 1962 HEPATITIS C SCREENING 1968 COLOGUARD 11/17/1995 COLONOSCOPY 11/17/1995 COLORECTAL CANCER SCREENING 11/17/1995 FIT TEST 11/17/1995 FOBT 11/17/1995 SIGMOIDOSCOPY 11/17/1995 VIRTUAL COLONOSCOPY 11/17/1995 PNEUMOCOCCAL VACCINES (50+ y ears) (1 of 1 - PCV) 2000 ZOSTER VACCINES (1 of 2) 2000 INFLUENZA VACCINE (#1) 2024 COVID-19 VACCINE (1 - 2023-2 5 season) 2025 RSV VACCINE (1 - 1-dose 75+ series) [...] file Insurance MEDICARE PART A & B [facility] MEDEX SUPPLEMENT MEDICARE PART A & B [facility] SUPPLEMENT MEDICARE PART A & B [employer] MEDEX SUPPLEMENT MEDICARE PART A & B [employer] SUPPLEMENT MEDICARE PART A & B [employer] SUPPLEMENT MEDICARE PART A & B [employer] SUPPLEMENT Care Teams Acetylene Operator Relationship Specialty Start Date End Date Leni Resendez MD [address] [facility] [place] [address] PCP - General Internal Medicine 11/22/22 Additional Source Comments The information contained in this document represents components of the legal health record. It is not the complete legal health record.[facility]
== END 2025-02-09 14:42 | disposition home or self-care (01) ==
LOC: HO.HMCC 13:02
PROVIDERS: PCP Internal Medicine; Visit Provider Internal Medicine
DX: G47.30 Sleep apnea, unspecified (principal); R10.9 Unspecified abdominal pain; K57.92 Diverticulitis of intestine, part unspecified, without perforation or abscess without bleeding; I25.10 Atherosclerotic heart disease of native coronary artery without angina pectoris; D47.2 Monoclonal gammopathy

== ENCOUNTER → 2025-02-09 13:02 | Outpatient (BNVA) | payer MEDICARE, SELFPAY | PROVIDERS: PCP Internal Medicine; Visit Provider Internal Medicine | DX: I25.10 Atherosclerotic heart disease of native coronary artery without angina pectoris (principal); G47.30 Sleep apnea, unspecified; K57.92 Diverticulitis of intestine, part unspecified, without perforation or abscess without bleeding; D47.2 Monoclonal gammopathy; R10.84 Generalized abdominal pain | CPT/HCPCS: 96127; 99212 ==

== ENCOUNTER 2025-02-10 07:13 | Outpatient (REF) | payer MEDICARE, SELFPAY ==
--- OUTSIDE RECORDS SUMMARY | 2025-02-07 13:25 | XMS_ITS | Encounter Summary ---
Author Organization [facility] Address [address] [place] [address] Care Team Providers Care Minesweeping Officer Name Role Phone Leni Resendez MD Primary Care Provider [phone] Reason for Referral * Hospital - Outpatient (Routine) - Authorized Specialty Diagnoses / Procedures Referred By Contac t Referred To Contact Gastroenterology Diagnoses GERD (gastroesophageal reflux disease) Epigastric pain Procedures EGD Anesthesia - MAC; [facility] ENDOSCOPY Alex Higginbotham MD [address] [address] Phone: tel: fax: [facility] Endoscopy [address] [place] [address] Phone: tel: Referral ID Status Reason Start Date Expiration Date V isits Requested Visits Authorized [id number] Authorized 10/05/2024 10/05/2025 1 1 * Hospital - Outpatient (Routine) - Authorized Specialty Diagnoses / Procedures Referred By Contac t Referred To Contact Gastroenterology Diagnoses History of colon polyps Epigastric pain Procedures COLONOSCOPY Anesthesia - MAC; [facility] ENDOSCOPY Alex Higginbotham MD [address] [address] Phone: tel: fax: [facility] Endoscopy [address] [place] [address] Phone: tel: Referral ID Status Reason Start Date Expiration Date V isits Requested Visits Authorized [id number] Authorized 10/05/2024 10/05/2025 1 1 Reason for Visit * Hospital - Outpatient (Routine) - Authorized Specialty Diagnoses / Procedures Referred By Marina t Referred To Contact Gastroenterology Diagnoses GERD (gastroesophageal reflux disease) Epigastric pain Procedures EGD Anesthesia - MAC; [facility] ENDOSCOPY Alex Higginbotham MD [address] [address] Phone: tel: fax: [facility] Endoscopy [address] [place] [address] Phone: tel: Referral ID Status Reason Start Date Expiration Date V isits Requested Visits Authorized [id number] Authorized 10/05/2024 10/05/2025 1 1 Encounter Details Date Type Department Care Team (Latest Contact Info) Description 02/07/2025 1:25 PM EDT Hospital Encounter [facility] Endoscopy [address] [place] [address] Alex Higginbotham MD [address] [address] Jone Acosta MD [address] [place] [address] History of colon polyps; Epigastric pain; GERD (gastroesophageal reflux disease) Social History Tobacco Use Types Packs/Day Years Used Date Smoking Tobacco: Never Smokeless Tobacco: Never Alcohol Use Standard Drinks/Week Comments Never 0 (1 standard drink = 0.6 oz pur e alcohol) Interpersonal Safety Answer Date Record ed Physical Abuse 02/07/2025 Verbal Abuse 02/07/2025 Sex and Gender Information Value Date Recorded Sex Assigned at Male 01/22/2025 11:36 AM EDT Legal Sex Male 1:28 PM EST Gender Identity Male 01/22/2025 11:36 AM EDT Sexual Orientation Straight 02/07/2025 1: 23 PM EDT documented as of this encounter Last Filed Vital Signs Vital Sign Reading Time Taken Comments Blood Pressure 123/87 02/07/2025 2:55 PM EDT Pulse 61 02/07/2025 2:55 PM EDT Temperature 36.4 C (97.5 F) 02/07/2025 2:35 PM EDT Respiratory Rate 16 02/07/2025 2:55 PM EDT Oxygen Saturation 99% 02/07/2025 2:55 PM EDT Inhaled Oxygen Concentration - - Weight 79.8 kg (176 lb) 02/07/2025 1:49 PM EDT Height 175.3 cm (5' 9 ) 02/07/2025 1:49 PM EDT Body Mass Index 25.99 02/07/2025 1:49 PM EDT documented in this encounter Progress Notes * Vandana Meeks RN - 02/07/2025 3:08 PM EDT Problem: Cognitive:Periop Procedure - Minor Goal: Knowledge of disease or condition will improve Outcome: Adequate for Discharge Problem: Sensory:Periop Procedure - Minor Goal: Demonstrates/reports adequate pain control Outcome: Adequate for Discharge * Gayathri Milan RN - 02/07/2025 2:29 PM EDT Dilated to 20mm, heme negative. * Gayathri Milan RN - 02/07/2025 2:26 PM EDT Colon end at 1420 Egd start at 1426 * Gayathri Milan RN - 02/07/2025 2:12 PM EDT Abdominal pressure applied. * Nadia Nicholas RN - 02/07/2025 1:41 PM EDT Problem: Cognitive:Periop Procedure - Minor Goal: Knowledge of disease or condition will improve Outcome: Progressing Problem: Sensory:Periop Procedure - Minor Goal: Demonstrates/reports adequate pain control Outcome: Progressing PT VERBALIZED UNDERSTAND OF DC INSTRUCTIONS, FALL RISK REVIEWED, CALL [facility]ILL AT BEDSIDE. documented in this encounter H&P Notes * Alex Higginbotham MD - 02/07/2025 2:00 PM EDT Pre-Op Diagnosis: Epigastric pain, GERD, Hx polyp Proposed Procedure: Colonand EGD Performing Surgeon/MD/Endoscopist: Alex Higginbotham MD Medical/History: Past Medical History: Diagnosis Date Colon polyp Degenerative disc disease, lumbar 07/10/2017 DX:Degenerative disc disease, lumbar Essential hypertension 07/10/2017 DX:Essential hypertension Gastroesophageal reflux disease without esophagitis 07/10/2017 DX:Gastroesophageal reflux disease without esophagitis GERD (gastroesophageal reflux disease) DX:GERD (gastroesophageal reflux disease) Helicobacter pylori gastritis 2012 MGUS (monoclonal gammopathy of unknown significance) 07/10/2017 DX:MGUS (monoclonal gammopathy of unknown significance) Monoclonal gammopathy DX:Monoclonal gammopathy Past Surgical History: Procedure Laterality Date COLONOSCOPY 09/22/2017 recall 5 years COLONOSCOPY 10/26/2014 COLONOSCOPY 07/17/2009 ESOPHAGOGASTRODUODENOSCOPY 07/30/2021 Nonobstructing Schatzki ring, dilated ESOPHAGOGASTRODUODENOSCOPY 12/01/2012 MANDIBLE FRACTURE SURGERY PROCEDURE:MANDIBLE FRACTURE SURGERY Medications/Allergies: Prior to Admission medications Medication Sig Start Date End Date Taking? Authorizing Provider aspirin 81 mg EC tablet Take 1 tablet (81 mg total) by mouth daily. - Oral Historical Provider, bisacodyL (DULCOLAX) 5 mg EC tablet Take 2 tablets by mouth right before beginning bowel prep. See instructions provided by the office 01/19/25 Alex Higginbotham MD famotidine (Pepcid) 20 mg tablet Take 1 tablet (20 mg total) by mouth 2 (two) times a day. 01/07/25 01/07/26 Sabino George MD lisinopriL (PRINIVIL,ZESTRIL) 5 mg tablet Take 1 tablet (5 mg total) by mouth daily. - Oral Historical Provider, metoprolol succinate (TOPROL-XL) 25 mg 24 hr tablet Take 1 tablet (25 mg total) by mouth daily. Historical Provider, pantoprazole (PROTONIX) 40 mg EC tablet Take 1 tablet (40 mg total) by mouth every morning on an empty stomach. - Oral Historical Provider, polyethylene glycol (Golytely) 236-22.74-6.74 -5.86 gram solution Take 4L by mouth once for one dose. May substitue any PEG. Starting at 2PM the day before your procedure drink 1 8oz glasses at your own pace until you complete half of the gallon. Finish 2nd half of the gallon at 8PM. 01/19/25 Alex Higginbotham MD rosuvastatin (CRESTOR) 10 mg tablet Take 1 tablet (10 mg total) by mouth daily. - Oral Historical Provider, Patient Age:74 y.o. Vitals: There were no vitals filed for this visit. Physical Exam: Mental Status: Clear HEENT: WNL Heart: WNL Lungs: WNL Abdomen: WNL Extremities: WNL Neuro: WNL Labs: Imaging: Diagnosis/Plan: Colonoscopy and EGD documented in this encounter Procedure Notes * Vandana Meeks RN - 02/07/2025 3:09 PM EDT Patient tolerated fluids and snacks well. Spoke with Dr. Higginbotham about findings, Pt. Meets criteria for discharge. documented in this encounter Plan of Treatment Upcoming Encounters Date Type Department Care Team (Late st Contact Info) Description 02/01/2026 11:00 AM EDT Office Visit [facility] Hematology Oncology [address] [place] [id number] Lily Mccann MD [address] [place] [address] documented as of this encounter Procedures Procedure Name Priority Date/Time Associated Diagnosis Comments COLONOSCOPY Routine 02/07/2025 2:34 PM EDT History of colon polyps Epigastric pain EGD Routine 02/07/2025 2:34 PM EDT GERD (gastroesophageal reflux disease) Epigastric pain TISSUE EXAM Routine 02/07/2025 2:15 PM EDT History of colon polyps Epigastric pain GERD (gastroesophageal reflux disease) documented in this encounter Results * EGD Anesthesia - MAC; [facility] ENDOSCOPY (02/07/2025 2:34 PM EDT) Anatomical Region Laterality Modality Other 02/07/2025 2:24 PM EDT Impressions 02/07/2025 2:37 PM EDT - Normal mid esophagus. Biopsied. - Widely patent and non-obstructing Schatzki ring. Dilated. - Normal antrum. Biopsied. - Normal stomach. - Normal examined duodenum. Recommendation: - Await pathology results. - Continue present medications. Narrative 02/07/2025 2:[address] [facility] GI Patient Name: Joni Medina Procedure Date: 02/07/2025 2:24 PM Date of : 1950 Age: 74 Room: ROOM 14 Gender: Male Note Status: Finalized Attending MD: Alex Higginbotham MD, Procedure Date No Time: 02/07/2025 Procedure: Upper GI endoscopy Indications: Dysphagia, Heartburn, Gastro-esophageal reflux disease, Personal history of peptic ulcer disease Providers: Alex Higginbotham MD Referring MD: Alex Higginbotham MD Medicines: Propofol per Anesthesia Complications: No immediate complications. Estimated Blood Loss: Estimated blood loss: none. Procedure: Pre-Anesthesia Assessment: - ASA Grade Assessment: II - A patient with mild systemic disease. After obtaining informed consent, the endoscope was passed under direct vision. Throughout the procedure, the patient's blood pressure, pulse, and oxygen saturations were monitored continuously.The Endoscope was introduced through the mouth, and advanced to the second part of duodenum. The upper GI endoscopy was accomplished without difficulty. The patient tolerated the procedure well. Findings: The mid esophagus was normal. Biopsies were taken with a cold forceps for histology. A widely patent and non-obstructing Schatzki ring was found in the lower third of the esophagus. A TTS dilator was passed through the scope. Dilation with an 18-19-20 mm balloon dilator was performed to 20 mm. No heme or tear. The gastric antrum was normal. Biopsies were taken with a cold forceps for histology. The entire examined stomach was normal. The examined duodenum was normal. Procedure Code(s): --- Professional --- 05528, Esophagogastroduodenoscopy, flexible, transoral; with transendoscopic balloon dilation of esophagus (less than 30 mm diameter) Diagnosis Code(s): --- Professional --- R13.10, Dysphagia, unspecified R12, Heartburn K21.9, Gastro-esophageal reflux disease without esophagitis Z87.11, Personal history of peptic ulcer disease K22.2, Esophageal obstruction CPT copyright 2020 [employer]. All rights reserved. The codes documented in this report are preliminary and upon dust box worker review may be revised to meet current compliance requirements. Alex Higginbotham MD 02/07/2025 2:37:21 PM This report has been signed electronically.Alex Higginbotham MD Number of Addenda: 0 Note Initiated On: 02/07/2025 2:24 PM Scope In: Scope Out: Endoscopy Department at [facility] - [address] [place] [id number] Procedure Note Alex Higginbotham MD - 02/07/2025 [facility] GI Patient Name: Joni Medina Procedure Date: 02/07/2025 2:24 PM Date of : 1950 Age: 74 Room: ROOM 14 Gender: Male Note Status: Finalized Attending MD: Alex Higginbotham MD, Procedure Date No Time: 02/07/2025 Procedure: Upper GI endoscopy Indications: Dysphagia, Heartburn, Gastro-esophageal reflux disease, Personal history of peptic ulcer disease Providers: Alex Higginbotham MD Referring MD: Alex Higginbotham MD Medicines: Propofol per Anesthesia Complications: No immediate complications. Estimated Blood Loss: Estimated blood loss: none. Procedure: Pre-Anesthesia Assessment: - ASA Grade Assessment: II - A patient with mild systemic disease. After obtaining informed consent, the endoscope was passed under direct vision. Throughout theprocedure, the patient's blood pressure, pulse, and oxygen saturations were monitored continuously.TheEndoscope was introduced through the mouth, and advanced tothe second part of duodenum. The upper GI endoscopy was accomplished without difficulty. The patienttolerated the procedure well. Findings: The mid esophagus was normal. Biopsies were takenwith a cold forceps for histology. A widely patent and non-obstructing Schatzki ringwas found in the lower third of the esophagus. A TTS dilator was passed through the scope. Dilation withan 18-19-20 mm balloon dilator was performed to 20 mm.No heme or tear. The gastric antrum was normal. Biopsies were taken with a cold forceps for histology. The entire examined stomach was normal. The examined duodenum was normal. Procedure Code(s): --- Professional --- 17343, Esophagogastroduodenoscopy, flexible, transoral; with transendoscopic balloon dilation of esophagus (less than 30 mm diameter) Diagnosis Code(s): --- Professional --- R13.10, Dysphagia, unspecified R12, Heartburn K21.9, Gastro-esophageal reflux disease without esophagitis Z87.11, Personal history of peptic ulcer disease K22.2, Esophageal obstruction CPT copyright 2020 [employer]. All rights reserved. The codes documented in this report are preliminary and upon dust box worker reviewmay be revised to meet current compliance requirements. Alex Higginbotham MD 02/07/2025 2:37:21 PM This report has been signed electronically.Alex Higginbotham MD Number of Addenda: 0 Note Initiated On: 02/07/2025 2:24 PM Scope In: Scope Out: Endoscopy Department at [facility] - [address] [place] [id number] IMPRESSION: - Normal mid esophagus. Biopsied. - Widely patent and non-obstructing Schatzki ring. Dilated. - Normal antrum. Biopsied. - Normal stomach. - Normal examined duodenum. Recommendation: - Await pathology results. - Continue present medications. us Alex Higginbotham MD GI~PROCEDURE ORDERABLES Fin al Result * COLONOSCOPY Anesthesia - MAC; [facility] ENDOSCOPY (02/07/2025 2:34 PM EDT) Anatomical Region Laterality Modality Other 02/07/2025 1:45 PM EDT Impressions 02/07/2025 2:24 PM EDT - One 7 mm polyp in the ascending colon, removed with a cold snare. Resected and retrieved. - One 5 mm polyp in the transverse colon, removed with a cold snare. Resected and retrieved. - Diverticulosis in the sigmoid colon. - The examination was otherwise normal on direct and retroflexion views. Recommendation: - Await pathology results. - Repeat colonoscopy in 5 years for surveillance. Narrative 02/07/2025 2:[address] [facility] GI Patient Name: Joni Medina Procedure Date: 02/07/2025 1:45 PM Date of : 1950 Age: 74 Room: ROOM 14 Gender: Male Note Status: Finalized Attending MD: Alex Higginbotham MD, Procedure Date No Time: 02/07/2025 Procedure: Colonoscopy Indications: High risk colon cancer surveillance: Personal history of colonic polyps Providers: Alex Higginbotham MD Referring MD: Alex Higginbotham MD Medicines: Propofol per Anesthesia Complications: No immediate complications. Estimated Blood Loss: Estimated blood loss: none. Procedure: Pre-Anesthesia Assessment: - ASA Grade Assessment: II - A patient with mild systemic disease. After I obtained informed consent, the scope was passed under direct vision. Throughout the procedure, the patient's blood pressure, pulse, and oxygen saturations were monitored continuously.The Colonoscope was introduced through the anus and advanced to the cecum, identified by appendiceal orifice and ileocecal valve. The colonoscopy was performed without difficulty. The patient tolerated the procedure well. The quality of the bowel preparation was good. Findings: The perianal and digital rectal examinations were normal. A 7 mm polyp was found in the ascending colon. The polyp was sessile. The polyp was removed with a cold snare. Resection and retrieval were complete. A 5 mm polyp was found in the transverse colon. The polyp was sessile. The polyp was removed with a cold snare. Resection and retrieval were complete. Multiple diverticula were found in the sigmoid colon. The exam was otherwise without abnormality on direct and retroflexion views. Procedure Code(s): --- Professional --- 96001, Colonoscopy, flexible; with removal of tumor(s), polyp(s), or other lesion(s) by snare technique Diagnosis Code(s): --- Professional --- Z86.010, Personal history of colonic polyps D12.2, Benign neoplasm of ascending colon D12.3, Benign neoplasm of transverse colon (hepatic flexure or splenic flexure) K57.30, Diverticulosis of large intestine without perforation or abscess without bleeding CPT copyright 2020 [employer]. All rights reserved. The codes documented in this report are preliminary and upon dust box worker review may be revised to meet current compliance requirements. Alex Higginbotham MD 02/07/2025 2:24:25 PM This report has been signed electronically.Alex Higginbotham MD Number of Addenda: 0 Note Initiated On: 02/07/2025 1:45 PM Scope In: Scope Out: Endoscopy Department at [facility] - [address] [place] [phone] Procedure Note Alex Higginbotham MD - 02/07/2025 [facility] GI Patient Name: Joni Medina Procedure Date: 02/07/2025 1:45 PM Date of : 1950 Age: 74 Room: ROOM 14 Gender: Male Note Status: Finalized Attending MD: Alex Higginbotham MD, Procedure Date No Time: 02/07/2025 Procedure: Colonoscopy Indications: High risk colon cancer surveillance: Personalhistory of colonic polyps Providers: Alex Higginbotham MD Referring MD: Alex Higginbotham MD Medicines: Propofol per Anesthesia Complications: No immediate complications. Estimated Blood Loss: Estimated blood loss: none. Procedure: Pre-Anesthesia Assessment: - ASA Grade Assessment: II - A patient with mild systemic disease. After I obtained informed consent, the scope was passed under direct vision. Throughout theprocedure, the patient's blood pressure, pulse, and oxygen saturations were monitored continuously.The Colonoscope was introduced through the anus and advanced to the cecum, identified by appendiceal orifice and ileocecal valve. The colonoscopy was performed without difficulty. The patient tolerated the procedure well. The quality of the bowel preparation was good. Findings: The perianal and digital rectal examinations were normal. A 7 mm polyp was found in the ascending colon. The polyp was sessile. The polyp was removed with acold snare. Resection and retrieval were complete. A 5 mm polyp was found in the transverse colon. The polyp was sessile. The polyp was removed with acold snare. Resection and retrieval were complete. Multiple diverticula were found in the sigmoidcolon. The exam was otherwise without abnormality ondirect and retroflexion views. Procedure Code(s): --- Professional --- 22012, Colonoscopy, flexible; with removal of tumor(s), polyp(s), or other lesion(s) by snare technique Diagnosis Code(s): --- Professional --- Z86.010, Personal history of colonic polyps D12.2, Benign neoplasm of ascending colon D12.3, Benign neoplasm of transverse colon (hepatic flexure or splenic flexure) K57.30, Diverticulosis of large intestine without perforation or abscess without bleeding CPT copyright 2020 [employer]. All rights reserved. The codes documented in this report are preliminary and upon dust box worker reviewmay be revised to meet current compliance requirements. Alex Higginbotham MD 02/07/2025 2:24:25 PM This report has been signed electronically.Alex Higginbotham MD Number of Addenda: 0 Note Initiated On: 02/07/2025 1:45 PM Scope In: Scope Out: Endoscopy Department at [facility] - [address] [place] [phone] IMPRESSION: - One 7 mm polyp in the ascending colon, removed with a cold snare. Resected and retrieved. - One 5 mm polyp in the transverse colon, removedwith a cold snare. Resected and retrieved. - Diverticulosis in the sigmoid colon. - The examination was otherwise normal on directand retroflexion views. Recommendation: - Await pathology results. - Repeat colonoscopy in 5 years for surveillance. us Alex Higginbotham MD GI~PROCEDURE ORDERABLES Fin al Result * Tissue exam (02/07/2025 2:15 PM EDT) Final Diagnosis A. Polyp, ascending colon, polypectomy: - Tubular adenoma. B. Polyp, transverse colon, polypectomy: - Colonic mucosa with occasional superficially dilated crypts compatible with a hyperplastic polyp. (See note.) Note: Multiple additional levels are examined. C. Stomach, antrum, biopsy: - Gastric antral-type mucosa without diagnostic histopathologic change. - No active gastritis and no intestinal metaplasia identified. - No Helicobacter pylori identified on hematoxylin and eosin stained sections. D. Distal esophagus, biopsy: - Esophageal squamous mucosa without diagnostic histopathologic change. - No intraepithelial eosinophils and no glandular mucosa identified. 02/09/2025 12:33 PM EDT [facility] Gross Description A. Large Intestine, Right/Ascending Colon, polyp: Labeled ascending colon polyp . Received in formalin are two irregular quiles mucosal tissue fragments, each measuring approximately 0.2 cm in greatest dimension, which are wrapped in paper and submitted in toto in one cassette, two pieces, multiple levels on one slide. B. Large Intestine, Transverse Colon, polyp: Labeled trans colon polyp . Received in formalin is a 0.2 cm irregular quiles mucosal tissue fragment which is wrapped in paper and submitted in toto in one cassette, one piece, multiple levels on one slide. C. Gastric, Antrum, biopsies: Labeled gastric antrum biopsies . Received in formalin is a 0.3 cm irregular quiles mucosal tissue fragment which is wrapped in paper and submitted in toto in one cassette, one piece, multiple levels on one slide. D. Esophagus, distal biopsies: Labeled esophagus distal . Received in formalin are two irregular pink-white mucosal tissue fragments, each measuring approximately 0.1 cm in greatest dimension, which are wrapped in paper and submitted in toto in one cassette, two pieces, multiple levels on one slide. [facility] 02/09/2025 12:33 PM EDT [facility] Disclaimer Unless otherwise specified, all tissue is 10% NB formalin fixed and paraffin embedded. 02/09/2025 12:33 PM EDT [facility] Tissue Ascending colon structure / Unknown 02/07/2025 2:15 PM EDT 02/07/2025 3:54 PM EDT Tissue specimen (specimen) Transverse colon structure / Unknown 02/07/2025 2:17 PM EDT 02/07/2025 3:54 PM EDT Tissue specimen (specimen) Pyloric antrum structure / Unknown 02/07/2025 2:27 PM EDT 02/07/2025 3:54 PM EDT Tissue specimen (specimen) Esophageal structure / Unknown 02/07/2025 2:28 PM EDT 02/07/2025 3:54 PM EDT us Alex Higginbotham MD LAB PATHOLOGY ORDERABLES Fi nal Result [facility] [address] [place] [address], documented in this encounter Visit Diagnoses Diagnosis History of colon polyps Epigastric pain Abdominal pain, epigastric GERD (gastroesophageal reflux disease) Esophageal reflux documented in this encounter Discontinued Medications Medication Sig Discontinue Reason Start Date End Da te bisacodyL (DULCOLAX) 5 mg EC tablet Take 2 tablets by mouth right before beginning bowel prep. See instructions provided by the office 01/19/2025 02/07/2025 polyethylene glycol (Golytely) 236-22.74-6.74 -5.86 gram solution Take 4L by mouth once for one dose. May substitue any PEG. Starting at 2PM the day before your procedure drink 1 8oz glasses at your own pace until you complete half of the gallon. Finish 2nd half of the gallon at 8PM. 01/19/2025 02/07/2025 documented as of this encounter Orders Discharge Count Last Ordered Date First Orde red Date DISCHARGE PATIENT 1 02/07/2025 documented in this encounter Care Teams Minesweeping Officer Relationship Specialty Start Date End Date Leni Resendez MD [address] [place] [phone] PCP - General Polarity Tester 01/22/17 documented as of this encounter
--- OUTSIDE RECORDS SUMMARY | 2025-02-07 14:02 | XMS_ITS | Encounter Summary ---
Author Organization [facility] Address [address] [place] [address] Care Team Providers Care Door Furring Installer Name Role Phone Leni Resendez MD Primary Care Provider [phone] Encounter Details Date Type Department Care Team (Late st Contact Info) Description 02/07/2025 2:02 PM EDT Anesthesia Event [facility] Endoscopy [address] [place] [address] Jone Acosta MD [address] [place] [address] Nany Kennedy CRNA [address] [place] [address] Anesthesia Record Procedure Summary Procedure Name Responsible Anesthesiologist Anesthesia Start Time Anesthesia Stop Time COLONOSCOPY Jone Acosta MD 02/07/25 1402 02/07/25 1435 Events Date Time Event Comment 02/07/2025 1402 1402 An Start 1402 An Start Data The patient wa s reevaluated immediately before moderate or deep sedation use and before anesthesia induction. 1403 In Room 1432 an stop data 1432 Transport to PACU/ICU Patien t reassessed and ready for transfer, airway stable. Patient transport to designated recovery area. {Transport to PACU/ICU:[id number]} 1434 Out of Room 1434 Handoff to RN I completed my handoff to the receiving nurse during which we: 1. Identified the patient 2. Identified the responsible provider 3. Reviewed the pertinent medical history 4. Discussed the surgical course 5. Reviewed intra-op anesthesia management and issues during anesthesia 6. Set expectations for post-procedure period 7. Allowed opportunity for questions and acknowledgement of understanding. 1435 An Stop Meds Name Total propofol (DIPRIVAN) injection 10 mg/mL 4 00 mg lidocaine PF (XYLOCAINE-MPF) local injec tion 2% 50 mg lactated Ringer's infusion 200 mL * Agents No agents on file. * Blood No blood administrations on file. Lines, Drains, and Airways Type Details Placement Removal Peripheral IV Placement Date: 02/07/25; Placement Time: 1350; Orientation: Posterior, Right; Location: Hand; Site Prep: Chlorhexidine; Insertion Attempts: 1; Patient Tolerance: Tolerated well; Removal Date: 02/07/25; Removal Time: 1457 02/07/25 1350 by Nadia Nicholas RN 02/07/25 145 by Vandana Meeks RN documented in this encounter Social History Tobacco Use Types Packs/Day Years [...] PM EDT documented as of this encounter Progress Notes * Nany Kennedy CRNA - 02/07/2025 2:35 PM EDT Patient: Joni Medina Procedure Summary Date: 02/07/25 Room / Location: [facility] Endoscopy Anesthesia Start: 1402 Anesthesia Stop: 1435 Procedures: COLONOSCOPY EGD Diagnosis: History of colon polyps Epigastric pain GERD (gastroesophageal reflux disease) (High risk colon cancer surveillance: Personal history of colonic polyps) Scheduled Providers: Alex Higginbotham MD; Shauna Villasenor CRNA; Jone Acosta MD Responsible Provider: Jone Acosta MD Anesthesia Type: MAC ASA Status: 2 Anesthesia Plan: MAC Last Vitals: Vitals Value Taken Time BP 125/65 02/07/25 1435 Temp 967 02/07/25 1435 Pulse 65 02/07/25 1435 Resp 14 02/07/25 1435 SpO2 97 02/07/25 1435 No data recorded Anesthesia Post Evaluation Patient location during evaluation: PACU Patient participation: complete - patient participated Level of consciousness: awake Pain score: 0 Pain management: adequate Airway patency: patent Anesthetic complications: no Cardiovascular status: stable and blood pressure returned to baseline Respiratory status: spontaneous ventilation and room air Hydration status: stable Nausea: No Vomiting: No There were no known notable events for this encounter. * Jone Acosta MD - 02/07/2025 2:01 PM EDT 74 y.o. male scheduled for [] EGD & Colonoscopy Ht Readings from Last 1 Encounters: 02/07/25 1.753 m (69 ) Wt Readings from Last 1 Encounters: 02/07/25 79.8 kg (176 lb) Body mass index is 25.99 kg/m??. Past Medical History: Diagnosis Date Colon polyp Degenerative disc disease, lumbar 07/10/2017 DX:Degenerative disc disease, lumbar Essential hypertension 07/10/2017 DX:Essential hypertension Gastroesophageal reflux disease without esophagitis 07/10/2017 DX:Gastroesophageal reflux disease without esophagitis GERD (gastroesophageal reflux disease) DX:GERD (gastroesophageal reflux disease) Helicobacter pylori gastritis 2012 Hyperlipidemia MGUS (monoclonal gammopathy of unknown significance) 07/10/2017 DX:MGUS (monoclonal gammopathy of unknown significance) Monoclonal gammopathy DX:Monoclonal gammopathy Past Surgical History: Procedure Laterality Date COLONOSCOPY 09/22/2017 recall 5 years COLONOSCOPY 10/26/2014 COLONOSCOPY 07/17/2009 ESOPHAGOGASTRODUODENOSCOPY 07/30/2021 Nonobstructing Schatzki ring, dilated ESOPHAGOGASTRODUODENOSCOPY 12/01/2012 MANDIBLE FRACTURE SURGERY PROCEDURE:MANDIBLE FRACTURE SURGERY Denies anesthesia complications Allergies Allergen Reactions Iodinated Contrast Media Current Outpatient Medications on File Prior to Encounter Medication Sig Dispense Refill aspirin 81 mg EC tablet Take 1 tablet (81 mg total) by mouth daily. - Oral famotidine (Pepcid) 20 mg tablet Take 1 tablet (20 mg total) by mouth 2 (two) times a day. 60 each 11 lisinopriL (PRINIVIL,ZESTRIL) 5 mg tablet Take 1 tablet (5 mg total) by mouth daily. - Oral metoprolol succinate (TOPROL-XL) 25 mg 24 hr tablet Take 1 tablet (25 mg total) by mouth daily. pantoprazole (PROTONIX) 40 mg EC tablet Take 1 tablet (40 mg total) by mouth every morning on an empty stomach. - Oral rosuvastatin (CRESTOR) 10 mg tablet Take 1 tablet (10 mg total) by mouth daily. - Oral [DISCONTINUED] bisacodyL (DULCOLAX) 5 mg EC tablet Take 2 tablets by mouth right before beginning bowel prep. See instructions provided by the office 2 tablet 0 [DISCONTINUED] polyethylene glycol (Golytely) 236-22.74-6.74 -5.86 gram solution Take 4L by mouth once for one dose. May substitue any PEG. Starting at 2PM the day before your procedure drink 1 8oz glasses at your own pace until you complete half of the gallon. Finish 2nd half of the gallon at 8PM.4000 mL 0 No current facility-administered medications on file prior to encounter. Current In-hospital Medications Social History Tobacco Use Smoking status: Never Smokeless tobacco: Never Substance Use Topics Alcohol use: Never Drug use: No Visit Vitals BP (!) 151/84 Pulse 63 Temp 36.4 ??C (97.5 ??F) (Skin) Resp 19 Ht 1.753 m (69 ) Wt 79.8 kg (176 lb) SpO2 97% BMI 25.99 kg/m?? Smoking Status Never BSA 1.96 m?? Available cardiac studies reviewed: No results found. EKG No results found for this or any previous visit (from the past 4464 hours). ECHO No results found for this or any previous visit. CATH No results found for this or any previous visit. LABS: Lab Results Component Value Date WBC 6.7 01/04/2025 HGB 13.1 (L) 01/04/2025 HCT 39.0 (L) 01/04/2025 MCV 90.5 01/04/2025 PLT 213 01/04/2025 Lab Results Component Value Date GLUCOSE 92 01/04/2025 CALCIUM 9.0 01/04/2025 NA 138 01/04/2025 K 4.0 01/04/2025 CO2 25 01/04/2025 CL 107 01/04/2025 BUN 17 01/04/2025 CREATININE 0.89 01/04/2025 No results found for: INR , PROTIME No results found for: PTT Denies cardiac, pulm, neuro, hepatic or renal s/sx. Patient meets ASA guidelines for NPO status. > 4 mets without anginal symptoms. Relevant labs, vitals, imaging, cardiac and pulmonary studies as well as HPI, Meds, Allergies, ROS,PMH, PSH, SH, and FH reviewed. Relevant Problems Cardio (+) Essential hypertension GI (+) Fatty liver (+) Gastroesophageal reflux disease without esophagitis Other (+) MGUS (monoclonal gammopathy of unknown significance) Clinical information reviewed: Tobacco Allergies Meds Med Hx Surg Hx Fam Hx Soc Hx Anesthesia Plan ASA 2 Anesthesia Plan: MAC Anesthesia Considerations MAC Anesthesia Risks Discussed dental injury, allergic reaction, serious complications and corneal abrasion Induction method: N/A Anesthetic plan and risks discussed with patient. Anesthesia Plan discussed with PICKER OPERATOR. Anesthesia Evaluation Patient summary reviewed and Nursing notes reviewed Airway Mallampati: III Thyromental distance: >3 FB Neck ROM: fullnot intubatedno noted risk Dental Comment: Missing. Pulmonary breath sounds clear to auscultation Cardiovascular (+) hypertension Rhythm: regular Rate: normal Neuro/Psych Mental Status: alert and oriented GI/Hepatic/Renal (+) GERD, liver disease Endo/Other Abdominal Abdomen: soft. Bowel sounds: normal. PONV RISK SCORE: 1 Vitals: 02/07/25 1349 BP: (!) 151/84 Pulse: 63 Resp: 19 Temp: 36.4 ??C (97.5 ??F) TempSrc: Skin SpO2: 97% Weight: 79.8 kg (176 lb) Height: 1.753 m (69 ) SpO2 Readings from Last 1 Encounters: 02/07/25 97% WBC Date Value Ref Range Status 01/04/2025 6.7 4.8 - 10.8 K/mcL Final RBC Date Value Ref Range Status 01/04/2025 4.30 (L) 4.50 - 5.50 M/mcL Final Hemoglobin Date Value Ref Range Status 01/04/2025 13.1 (L) 13.5 - 17.5 g/dL Final Hematocrit Date Value Ref Range Status 01/04/2025 39.0 (L) 42.0 - 54.0 % Final Platelets Date Value Ref Range Status 01/04/2025 213 130 - 400 K/mcL Final MCV Date Value Ref Range Status 01/04/2025 90.5 79.0 - 98.0 FL Final Allergies Allergen Reactions Iodinated Contrast Media STOP BANG: No data recorded NPO Status: Time of Last Liquid: 0600 Time of Last Solid: 1800 documented in this encounter Plan of Treatment Upcoming Encounters Date Type Department Care Team (Late st Contact Info) Description 02/01/2026 11:00 AM EDT Office Visit [facility] Hematology Oncology [address] [place] [address] Lily Mccann MD [address] [place] [address] documented as of this encounter Visit Diagnoses Not on filedocumented in this encounter Administered Medications Inactive Administered Medications - up to 3 most recent administrations Medication Order MAR Action Action Date Dose Rate Site lactated Ringer's infusion intravenous, Continuous PRN, Starting on Fri02/07/25 at 1402, Anesthesia Intraprocedure New Bag 02/07/2025 2:02 PM EDT 125 mL/hr lidocaine (PF) (XYLOCAINE-MPF) 2 % injection injection, As needed, Starting on Fri02/07/25 at 1406, Anesthesia Intraprocedure Given 02/07/2025 2:06 PM EDT 50 mg propofoL (DIPRIVAN) injection intravenous, As needed, Starting on Fri02/07/25 at 1406, Anesthesia Intraprocedure Given 02/07/2025 2:25 PM EDT 50 mg Given 02/07/2025 2:20 PM EDT 50 mg Given 02/07/2025 2:17 PM EDT 50 mg documented in this encounter Care Teams Door Furring Installer Relationship Specialty Start Date End Date Leni Resendez MD [address] [facility] [place] [id number] PCP - General Transportation Department Head 01/22/17 documented as of this encounter
--- OUTSIDE RECORDS SUMMARY | 2025-02-10 07:17 | XMS_ITS | Clinical Summary ---
Author Organization [facility] Address [address] [place] [address] Phone Care Team Providers Care Silica Dry Press Helper Name Role Phone Leni Resendez MD Primary Care Provider [phone] Allergies Active Allergy Reactions Criticality Noted Date Comments Iodinated Contrast Media 11/18/2024 Medications aspirin 81 mg EC tablet Take 1 tablet (81 mg total) by mouth daily. - Oral Active lisinopriL (PRINIVIL,ZEST RIL) 5 mg tablet Take 1 tablet (5 mg total) by mouth daily. - Oral Active pantoprazole (PROTONIX) 40 mg EC tablet Take 1 tablet (40 mg total) by mouth every morning on an empty stomach. - Oral Active rosuvastatin (CRESTOR) 10 mg tablet Take 1 tablet (10 mg total) by mouth daily. - Oral Active metoprolol succinate (TOPROL-XL) 25 mg 24 hr tablet Take 1 tablet (25 mg total) by mouth daily. Active famotidine (Pepcid) 20 mg tabletIndicati ons:Gastroesop hageal reflux disease, unspecified whether esophagitis present Take 1 tablet (20 mg total) by mouth 2 (two) times a day. 60 each 11 01/08/20 25 026 Active polyethylene glycol (Golytely) 236-22.74-6.74 -5.86 gram solution Take 4L by mouth once for one dose. May substitue any PEG. Starting at 2PM the day before your procedure drink 1 8oz glasses at your own pace until you complete half of the gallon. Finish 2nd half of the gallon at 8PM. 4000 mL 01/20/20 025 Discontinued bisacodyL (DULCOLAX) 5 mg EC tablet Take 2 tablets by mouth right before beginning bowel prep. See instructions provided by the office 2 tablet 01/20/20 025 Discontinued Active Problems Problem Noted Date Diagnosed Date Fatty liver 09/30/2024 Degenerative disc disease, lumbar 07/10/2017 Essential hypertension 07/10/2017 Gastroesophageal reflux disease without esophagi tis 07/10/2017 MGUS (monoclonal gammopathy of unknown significa nce) 07/10/2017 Encounters Date Type Department Care Team Description 02/07/2025 2:02 PM EDT Anesthesia Event [facility] Endoscopy [address] [place] [phone] Jone Acosta MD Chang, Ling, CRNA 02/07/2025 1:25 PM EDT Hospital Encounter [facility] Endoscopy [address] [place] [phone] Alex Higginbotham MD Spencer, Mark A, MD History of colon polyps; Epigastric pain; GERD (gastroesophageal reflux disease) 01/06/2025 11:00 AM EDT Office Visit [facility] Hematology Oncology [address] [place] [phone] Lily Mccann MD MGUS (monoclonal gammopathy of unknown significance) (Primary Dx); Pancytopenia (CMS/HCC V24, CMS/HCC V28); IgA monoclonal gammopathy 01/06/2025 Telephone Gastroenterology - [address] [phone] Sabino George MD 11/22/2024 Telephone Gastroenterology - [address] [phone] Alex Higginbotham MD from Last 3 Months Surgical History Surgery [...] lumbar Colon polyp Helicobacter pylori gastritis 2012 Hyperlipidemia Family History Medical History Relation Name Comments Colon cancer Neg Hx Social History Tobacco Use Types Packs/Day Years Used Date Smoking Tobacco: Never Smokeless Tobacco: Never Tobacco Cessation:Counseling Given: Not Answered Alcohol Use Standard Drinks/Week Comments Never 0 [...] Orientation Straight 02/07/2025 1: 23 PM EDT Obstetrics History Last Filed Vital Signs Vital [...] Mass Index 25.99 02/07/2025 1:49 PM EDT Plan of Treatment Upcoming Encounters Date Type Department Care Team (Late st Contact Info) Description 02/01/2026 11:00 AM EDT Office Visit [facility] Hematology Oncology [address] [place] [address] Lily Mccann MD [address] [place] [address] Health Maintenance Due Date Last Done Comments Pneumococcal Vaccine: 50+ Years (1 of 2 - PCV) 1969 Zoster Vaccines (1 of 2) 1969 COVID-19 Vaccine (3 - Pfizer risk series) 03/06/2021 02/06/2021, 01/16/2021 Cholesterol Screening (Lipid Panel) 04/23/2022 Hepatitis C Screening 04/23/2022 Medicare Annual Wellness Visit 04/23/2022 Social Influencers of Health Screening 04/23/2022 Depression Screening 05/26/2024 DTaP,Tdap,and Td Vaccines (3 - Td or Tdap) 01/20/2025 01/20/2015, 10/27/2009 Influenza Vaccine (#1) 2025 RSV Immunization Adult Patients (1 - 1-dose 75+ series) 2025 Hypertension/CHF/CAD Annual BMP Blood Test 01/04/2026 01/04/2025 Falls Risk Assessment 02/07/2026 02/07/2025 Colorectal Cancer Screening: Colonoscopy 02/07/2035 02/07/2025, 12/23/2024 HIB Vaccines Aged Out No longer [...] Procedure Name Priority Date/Time Associated Diagnosis Comments EGD Routine 02/07/2025 2:34 PM EDT GERD (gastroesophageal reflux disease) Epigastric pain COLONOSCOPY Routine 02/07/2025 2:34 PM EDT History of colon polyps Epigastric pain TISSUE EXAM Routine 02/07/2025 2:15 PM EDT History of colon polyps Epigastric pain GERD (gastroesophageal reflux disease) ..MISCELLANEOUS REFERENCE LAB TEST 01/06/2025 CBC WITH AUTO DIFFERENTIAL Routine 01/04/2025 8:22 AM EDT Plasma cell neoplasm CBC AND DIFFERENTIAL Routine 01/04/2025 8:22 AM EDT Plasma cell neoplasm IMMUNOGLOBULIN IGG Routine 01/04/2025 8: 22 AM EDT Plasma cell neoplasm IMMUNOGLOBULIN IGA Routine 01/04/2025 8: 22 AM EDT Plasma cell neoplasm KAPPA-LAMBDA QUANTITATIVE FREE LIGHT CHAINS Routine 01/04/2025 8:22 AM EDT Plasma cell neoplasm LACTATE DEHYDROGENASE Routine 01/04/2025 8:22 AM EDT Plasma cell neoplasm COMPREHENSIVE METABOLIC PANEL Routine 01/04/2025 8:22 AM EDT Plasma cell neoplasm COLONOSCOPY Routine 12/23/2024 3:35 PM EDT from Last 3 Months Results * COLONOSCOPY Anesthesia - MAC; [facility] (02/07/2025 2:34 PM EDT) Only the most recent of2 resultswithin the time period is included. Anatomical Region Laterality Modality Other 02/07/2025 1:45 [...] for surveillance. Narrative 02/07/2025 2:24 PM EDT [facility] GI Patient Name: Joni Medina Procedure [...] retroflexion views. Procedure Code(s): --- Professional --- 96254, Colonoscopy, flexible; with removal of tumor(s), polyp(s), or other lesion(s) by snare technique Diagnosis Code(s): --- Professional --- Z86.010, Personal history of colonic polyps D12.2, Benign neoplasm of ascending colon D12.3, Benign neoplasm of transverse colon (hepatic flexure or splenic flexure) K57.30, Diverticulosis of large intestine without perforation or abscess without bleeding CPT copyright 2020 [employer]. All rights reserved. The codes documented in this report are preliminary and upon pharmaceutical salesperson review may be revised to meet current compliance requirements. Alex Higginbotham MD 02/07/2025 2:24:25 PM This report has been signed electronically.Alex Higginbotham MD Number of Addenda: 0 Note Initiated On: 02/07/2025 1:45 PM Scope In: Scope Out: Endoscopy Department at [facility] - [address] [place] [phone] Procedure Note Alex Higginbotham MD - 02/07/2025 [facility] GI Patient Name: Joni Medina Procedure [...] retroflexion views. Procedure Code(s): --- Professional --- 10220, Colonoscopy, flexible; with removal of tumor(s), polyp(s), or other lesion(s) by snare technique Diagnosis Code(s): --- Professional --- Z86.010, Personal history of colonic polyps D12.2, Benign neoplasm of ascending colon D12.3, Benign neoplasm of transverse colon (hepatic flexure or splenic flexure) K57.30, Diverticulosis of large intestine without perforation or abscess without bleeding CPT copyright 2020 [employer]. All rights reserved. The codes documented in this report are preliminary and upon pharmaceutical salesperson reviewmay be revised to meet current compliance requirements. Alex Higginbotham MD 02/07/2025 2:24:25 PM This report has been signed electronically.Alex Higginbotham MD Number of Addenda: 0 Note Initiated On: 02/07/2025 1:45 PM Scope In: Scope Out: Endoscopy Department at [facility] - [address] [place] [phone] IMPRESSION: - One 7 mm polyp in the ascending colon, removed with a cold snare. Resected and retrieved. - One 5 mm polyp in the transverse colon, removedwith a cold snare. Resected and retrieved. - Diverticulosis in the sigmoid colon. - The examination was otherwise normal on directand retroflexion views. Recommendation: - Await pathology results. - Repeat colonoscopy in 5 years for surveillance. Alex Higginbotham MD GI~PROCEDURE ORDERABLES Fin al Result * EGD Anesthesia - [facility] [facility] (02/07/2025 2:34 PM EDT) Anatomical Region Laterality Modality Other 02/07/2025 2:24 PM EDT Impressions 02/07/2025 2:37 PM EDT - Normal mid esophagus. Biopsied. - Widely patent and non-obstructing Schatzki ring. Dilated. - Normal antrum. Biopsied. - Normal stomach. - Normal examined duodenum. Recommendation: - Await pathology results. - Continue present medications. Narrative 02/07/2025 2:37 PM EDT [facility] Patient Name: Joni Medina Procedure [...] was normal. Procedure Code(s): --- Professional --- 35734, Esophagogastroduodenoscopy, flexible, transoral; with transendoscopic balloon dilation of esophagus (less than 30 mm diameter) Diagnosis Code(s): --- Professional --- R13.10, Dysphagia, unspecified R12, Heartburn K21.9, Gastro-esophageal reflux disease without esophagitis Z87.11, Personal history of peptic ulcer disease K22.2, Esophageal obstruction CPT copyright 202 [employer]. All rights reserved. The codes documented in this report are preliminary and upon pharmaceutical salesperson review may be revised to meet current compliance requirements. Alex Higginbotham MD 02/07/2025 2:37:21 PM This report has been signed electronically.Alex Higginbotham MD Number of Addenda: 0 Note Initiated On: 02/07/2025 2:24 PM Scope In: Scope Out: Endoscopy Department at [facility] - [address] [place] [phone] Procedure Note Alex Higginbotham MD - 02/07/2025 [facility] GI Patient Name: Joni Medina Procedure [...] was normal. Procedure Code(s): --- Professional --- 95968, Esophagogastroduodenoscopy, flexible, transoral; with transendoscopic balloon dilation of esophagus (less than 30 mm diameter) Diagnosis Code(s): --- Professional --- R13.10, Dysphagia, unspecified R12, Heartburn K21.9, Gastro-esophageal reflux disease without esophagitis Z87.11, Personal history of peptic ulcer disease K22.2, Esophageal obstruction CPT copyright 2020 [employer]. All rights reserved. The codes documented in this report are preliminary and upon pharmaceutical salesperson reviewmay be revised to meet current compliance requirements. Alex Higginbotham MD 02/07/2025 2:37:21 PM This report has been signed electronically.Alex Higginbotham MD Number of Addenda: 0 Note Initiated On: 02/07/2025 2:24 PM Scope In: Scope Out: Endoscopy Department at [facility] - [address] [place] [phone] IMPRESSION: - Normal mid esophagus. Biopsied. - [...] glandular mucosa identified. 02/09/2025 12:33 PM EDT [facility] Gross Description A. Large Intestine, [...] one slide. UCHE 02/09/2025 12:33 PM EDT [facility] Disclaimer Unless otherwise specified, all tissue is 10% NB formalin fixed and paraffin embedded. 02/09/2025 12:33 PM EDT [facility] Tissue Ascending colon structure / Unknown 02/07/2025 2:15 PM EDT 02/07/2025 3:54 PM EDT Tissue specimen (specimen) Transverse colon structure / Unknown 02/07/2025 2:17 PM EDT 02/07/2025 3:54 PM EDT Tissue specimen (specimen) Pyloric antrum structure / Unknown 02/07/2025 2:27 PM EDT 02/07/2025 3:54 PM EDT Tissue specimen (specimen) Esophageal structure / Unknown 02/07/2025 2:28 PM EDT 02/07/2025 3:54 PM EDT Alex Higginbotham MD LAB PATHOLOGY ORDERABLES Fi nal Result [facility] [address] [place] [address], * Miscellaneous reference lab test (01/06/2025) us Provider Onbase LAB BLOOD ORDERABLES Final Re sult * (ABNORMAL) Spofford-lambda free light chains, quantitative (01/04/2025 8:22 AM EDT) [place] Free Light Chain 9.73(H) 0.33 - 1.94 mg/dL 01/06/2025 11:47 AM EDT [facility] Lambda Free Light Chain 0.91 0.57 - 2.63 mg/dL 01/06/2025 11:47 AM EDT [facility] [place]/Lambda FLC Ratio 10.69(H) 0.26 - 1.65 01/06/2025 11:47 AM EDT [facility] Comment: Test performed at [facility], [address] , [place] [address] Callie Singh MD, PhD - Job Boss Blood Venous blood specimen / Unknown Venipuncture / Unknown 01/04/2025 8:22 AM EDT 01/04/2025 11:24 AM EDT us Lily Mccann MD LAB BLOOD ORDERABLES Final R esult [facility] [address] [place] [address] * (ABNORMAL) CBC auto differential (01/04/2025 8:22 AM EDT) WBC 6.7 4.8 - 10.8 K/mcL LAB HEMETOLOGY METHOD 01/04/2025 11:36 AM [facility] RBC 4.30(L) 4.50 - 5.50 M/mcL LAB HEMETOLOGY METHOD 01/04/2025 11:36 AM [facility] Hemoglobin 13.1(L) 13.5 - 17.5 g/dL LAB HEMETOLOGY METHOD 01/04/2025 11:36 AM [facility] Hematocrit 39.0(L) 42.0 - 54.0 % LAB HEMETOLOGY METHOD 01/04/2025 11:36 AM [facility] MCV 90.5 79.0 - 98.0 FL LAB HEMETOLOGY METHOD 01/04/2025 11:36 AM [facility] MCH 30.4 27.0 - 32.0 pcg LAB HEMETOLOGY METHOD 01/04/2025 11:36 AM [facility] MCHC 33.6 32.0 - 37.0 g/dL LAB HEMETOLOGY METHOD 01/04/2025 11:36 AM [facility] RDW 12.3 11.0 - 15.0 % LAB HEMETOLOGY METHOD 01/04/2025 11:36 AM [facility] Platelets 213 130 - 400 K/mcL LAB HEMETOLOGY METHOD 01/04/2025 11:36 AM [facility] MPV 11.0 7.0 - 11.0 FL LAB HEMETOLOGY METHOD 01/04/2025 11:36 AM [facility] NRBC 0.0 <1.0 % LAB HEMETOLOGY METHOD 01/04/2025 11:36 AM [facility] NRBC Absolute 0.00 <0.10 K/mcL LAB HEMETOLOGY METHOD 01/04/2025 11:36 AM [facility] Neutrophils Relative 51.3 % LAB HEMETOLOGY METHOD 01/04/2025 11:36 AM [facility] Lymphocytes Relative 35.1 % LAB HEMETOLOGY METHOD 01/04/2025 11:36 AM [facility] Monocytes Relative 8.3 % LAB HEMETOLOGY METHOD 01/04/2025 11:36 AM [facility] Eosinophils Relative 4.2 % LAB HEMETOLOGY METHOD 01/04/2025 11:36 AM [facility] Basophils Relative 0.8 % LAB HEMETOLOGY METHOD 01/04/2025 11:36 AM [facility] Immature Granulocytes Relative 0.3 % LAB HEMETOLOGY METHOD 01/04/2025 11:36 AM [facility] Neutrophils Absolute 3.42 1.50 - 7.00 K/mcL LAB HEMETOLOGY METHOD 01/04/2025 11:36 AM EDT [facility] Lymphocytes Absolute 2.34 1.00 - 5.00 K/[facility] LAB HEMETOLOGY METHOD 01/04/2025 11:36 AM EDT [facility] Monocytes Absolute 0.55 0.20 - 1.00 K/[facility] LAB HEMETOLOGY METHOD 01/04/2025 11:36 AM EDT [facility] Eosinophils Absolute 0.28 0.00 - 0.50 K/[facility] LAB HEMETOLOGY METHOD 01/04/2025 11:36 AM EDT [facility] Basophils Absolute 0.05 0.00 - 0.20 K/[facility] LAB HEMETOLOGY METHOD 01/04/2025 11:36 AM EDT [facility] Immature Granulocytes Absolute 0.02 0.00 - 0.03 K/[facility] LAB HEMETOLOGY METHOD 01/04/2025 11:36 AM EDT [facility] Blood Venous blood specimen / Unknown Venipuncture / Unknown 01/04/2025 8:22 AM EDT 01/04/2025 11:24 AM EDT us Lily Mccann MD LAB BLOOD ORDERABLES Final R esult [facility] [address] [place] [address], * Lactate dehydrogenase (01/04/2025 8:22 AM EDT) LDH 151 120 - 246 unit/L LAB CHEMISTRY METHOD 01/04/2025 2:55 PM EDT [facility] Blood Venous blood specimen / Unknown Venipuncture / Unknown 01/04/2025 8:22 AM EDT 01/04/2025 11:24 AM EDT us Lily Mccann MD LAB BLOOD ORDERABLES Final R esult Performing Organization Address City/[facility]/ZIP Co de Phone Number [facility] [address] [place] [address], * Immunoglobulin IgA (01/04/2025 8:22 AM EDT) IgA 136 61 - 348 mg/dL LAB CHEMISTRY METHOD 01/04/2025 2:55 PM EDT [facility] Blood Venous blood specimen / Unknown Venipuncture / Unknown 01/04/2025 8:22 AM EDT 01/04/2025 11:24 AM EDT us Lily Mccann MD LAB BLOOD ORDERABLES Final R esult Performing Organization Address [facility] Co de Phone Number [facility] [address] [place] [address], [place] [phone] * Immunoglobulin IgG (01/04/2025 8:22 AM EDT) Total IgG 1,470 549 - 1,584 mg/dL LAB CHEMISTRY METHOD 01/04/2025 2:55 PM EDT [facility] Blood Venous blood specimen / Unknown Venipuncture / Unknown 01/04/2025 8:22 AM EDT 01/04/2025 11:24 AM EDT us Lily Mccann MD LAB BLOOD ORDERABLES Final R esult Performing Organization Address City/[facility]/ZIP Co de Phone Number [facility] [address] [place] [address], [place] [phone] * Comprehensive metabolic panel (01/04/2025 8:22 AM EDT) Sodium 138 133 - 145 mmol/L LAB CHEMISTRY METHOD 01/04/2025 2:58 PM EDT [facility] Potassium 4.0 3.5 - 5.5 mmol/L LAB CHEMISTRY METHOD 01/04/2025 2:58 PM [facility] Chloride 107 96 - 110 mmol/L LAB CHEMISTRY METHOD 01/04/2025 2:58 PM [facility] CO2 25 21 - 32 mmol/L LAB CHEMISTRY METHOD 01/04/2025 2:58 PM [facility] Anion Gap 6 3 - 11 LAB CHEMISTRY METHOD 01/04/2025 2:58 PM [facility] Glucose 92 70 - 100 mg/dL LAB CHEMISTRY METHOD 01/04/2025 2:58 PM [facility] BUN 17 5 - 25 mg/dL LAB CHEMISTRY METHOD 01/04/2025 2:58 PM [facility] Creatinine 0.89 0.70 - 1.30 mg/dL LAB CHEMISTRY METHOD 01/04/2025 2:58 PM [facility] eGFR 90 >=60 mL/min/1. 73m2 LAB CHEMISTRY METHOD 01/04/2025 2:58 PM [facility] Comment:Calculation based on the Chronic Kidney Disease Epidemiology Collaboration (CKD-EPI) equation refit without adjustment for race. BUN/Creatinine Ratio 19.1 LAB CHEMISTRY METHOD 01/04/2025 2:58 PM [facility] Calcium 9.0 8.5 - 10.5 mg/dL LAB CHEMISTRY METHOD 01/04/2025 2:58 PM [facility] AST (SGOT) 31 10 - 42 unit/L LAB CHEMISTRY METHOD 01/04/2025 2:58 PM [facility] ALT (SGPT) 41 10 - 60 unit/L LAB CHEMISTRY METHOD 01/04/2025 2:58 PM [facility] Alkaline Phosphatase 71 42 - 121 unit/L LAB CHEMISTRY METHOD 01/04/2025 2:58 PM [facility] Total Protein 7.1 6.0 - 8.0 g/dL LAB CHEMISTRY METHOD 01/04/2025 2:58 PM EDT [facility] Albumin 3.7 3.2 - 5.0 g/dL LAB CHEMISTRY METHOD 01/04/2025 2:58 PM EDT [facility] Total Bilirubin 0.5 0.0 - 1.4 mg/dL LAB CHEMISTRY METHOD 01/04/2025 2:58 PM EDT [facility] Blood Venous blood specimen / Unknown Venipuncture / Unknown 01/04/2025 8:22 AM EDT 01/04/2025 11:24 AM EDT us Lily Mccann MD LAB BLOOD ORDERABLES Final R esult [facility] [address] [place] [address], [place] [phone] from Last 3 Months Insurance MEDICARE [facility] Care Teams Silica Dry Press Helper Relationship Specialty Start Date End Date Leni Resendez MD [address] [place] [address] PCP - General Detective 01/22/17
--- OUTSIDE RECORDS SUMMARY | 2025-02-10 07:17 | XMS_ITS | Clinical Summary ---
Author Organization [facility] Address [address] [place] [address] Care Team Providers Care Video Game Engineer Name Role Phone Leni Resendez MD Primary Care Provider [phone] Allergies No known active allergies Medications Medication [...] age to complete this topic Care Teams Video Game Engineer Relationship Specialty Start Date End Date Leni Resendez MD PCP - General Tenter 01/22/17
--- OUTSIDE RECORDS SUMMARY | 2025-02-10 07:17 | XMS_ITS | Encounter Summary ---
Author Organization [facility] Address [address] [place] [address] Care Team Providers Care Jar Filler Name Role Phone Leni Resendez MD Primary Care Provider [phone] Encounter Details Date Type Department Care Team Description 12/07/2019 Nurse Only [facility] [address] [place] [address] Pedro Luis Loco RN Social History Tobacco [...] on filedocumented in this encounter Care Teams Jar Filler Relationship Specialty Start Date End Date Leni Resendez MD PCP - General Head Wrestling Coach 01/22/17 documented as of this encounter
[2025-02-10 08:40] LABS: MANUAL DIFF FLAG NO
[2025-02-10 08:46] LABS: Hematocrit 40.0 % (42.0-52.0); Hemoglobin 13.4 g/dl (14.0-18.0); Imm Gran Abs Auto 0.02 X10*3/uL (0.00-0.03); Imm Gran Pct Auto 0.3 % (0.0-0.4); Lymphocytes Absolute Auto 2.1 X10*3/uL (1.2-4.9); Mean Corpuscular HGB Conc 33.5 g/dl (31.0-36.0); Mean Corpuscular Hemoglobin 30.2 pg (27.0-33.0); Mean Corpuscular Volume 90.3 fL (80.0-98.0); NRBC Abs Auto 0.000 X10*3/uL (0.0-0.012); NRBC Pct Auto 0.0 /100WBC (0.0-0.2); Platelet Count 200 X10*3/uL (160-400); Red Blood Count 4.43 X10*6/uL (4.60-5.80); White Blood Count 5.9 X10*3/uL (4.8-10.8)
[2025-02-10 09:30] LABS: Hemoglobin A1C 144.4980 umol/L; Total Hemoglobin (HGBA1C) 3535.8560 umol/L
[2025-02-10 10:38] LABS: Alanine Aminotransferase 39 U/L (0-40); Albumin Level 4.3 g/dL (3.5-5.0); Alkaline Phosphatase 72 U/L (39-117); Anion Gap 8 (12-20); Aspartate Amino Transferase 40 U/L (5-37); Blood Urea Nitrogen 16 mg/dL (9-16); Calcium 9.4 mg/dL (8.4-10.2); Carbon Dioxide 27 mmol/L (22-29); Chloride 109 mmol/L (96-108); Cholesterol 142 mg/dL (<200); Estimated Glomerular Filt Rate > 60; HDL Cholesterol 43 mg/dL (>40); Potassium 3.8 mmol/L (3.3-5.1); Sodium 140 mmol/L (135-145); Total Protein 7.5 g/dL (6.5-8.0); Triglycerides 92 mg/dL (<150)
[2025-02-10 10:52] LABS: PSA,Total (Free>4and<10) 4.38 ng/mL (0.00-4.00)
[2025-02-10 11:36] LABS: Appearance Urine Clear; Glucose Urine UA Negative (Negative); PH 5.5 (5.0-9.0); Specific Gravity - Urine 1.025 (1.005-1.025)
[2025-02-10 12:11] LABS: Microalbum/Creatinine Ratio Ur 7.4 ug/mg cr (<30)
[2025-02-11 12:23] LABS: Free Prostate Spec Ag 0.7 ng/mL; Percent Free Prostate Spec Ag 16 % (calc) (>25)
== END 2025-02-10 07:14 | disposition home or self-care (01) ==
LOC: HO.HMGCLDS 07:13
PROVIDERS: PCP Internal Medicine; Visit Provider Internal Medicine
DX: Z00.00 Encounter for general adult medical examination without abnormal findings (principal); Z12.5 Encounter for screening for malignant neoplasm of prostate; I25.10 Atherosclerotic heart disease of native coronary artery without angina pectoris; D47.2 Monoclonal gammopathy; R73.9 Hyperglycemia, unspecified
CPT/HCPCS: 36415; 80053; 80061; 81001; 82043; 82570; 82784; 83036; 84153; 84154; 85025; 86334

== ENCOUNTER 2025-03-14 07:40 | Outpatient (REF) | payer MEDICARE, SELFPAY ==
--- NOTE | ~2025-03-14 | CT_ITS ---
EXAMINATION: CT ABDOMEN AND PELVIS WITHOUT CONTRAST CLINICAL INFORMATION: A 57.92. Diverticulitis, unspecified. COMPARISON: None available. TECHNIQUE: Multidetector volumetric imaging was performed from the superior aspect of the liver through the pubic symphysis. Sagittal and coronal reformatted images were obtained on the technologist's workstation. Oral contrast given. This CT examination was performed using dose optimization techniques as appropriate, variously including the following: *Automated exposure control *Adjustment of mA and/or kV according to patient size (this includes techniques or standardized protocols for targeted exams where dose is matched to indication/reason for exam; i.e. extremities or head) *Use of iterative reconstruction technique DLP: 514 mGy centimeter. FINDINGS: Inadequate evaluation of the intra-abdominal organs and vascular structures due to lack of IV contrast. LUNG BASES: No acute airspace disease. LIVER, GALLBLADDER, AND BILIARY TREE: Liver measures 15 cm. Gallbladder is contracted. No pericholecystic fluid collection or gallbladder wall thickening. No intrahepatic or extrahepatic biliary ductal dilatation.. PANCREAS: No peripancreatic fluid collection. No main pancreatic ductal dilatation. SPLEEN: 9 cm. ADRENAL GLANDS: Soft tissue fullness without nodular lesions. KIDNEYS AND URETERS: 1 mm nonobstructing calculus, right kidney. No hydronephrosis in either kidney. BLADDER: Fluid-filled. GASTROINTESTINAL TRACT: Appendix is normal. Numerous diverticula, sigmoid colon. Abundant stool throughout the large intestine. No intestinal obstruction pattern. No pneumatosis intestinalis. No intestinal wall thickening. No pneumoperitoneum. No ascites. ABDOMINAL WALL: No umbilical hernia. LYMPH NODES: Nonspecific mild prominent mesenteric, retroperitoneum and inguinal. VASCULAR: Calcified plaques in the coronary arteries with questionable stenting. Calcified plaques throughout the abdominal aorta wall and iliac arteries the origin of the mesenteric arteries and main renal arteries. No aneurysm, abdominal aorta. PELVIC VISCERA: 9 cm heterogeneous enlarged prostate gland protruding upon the bladder floor. OSSEOUS STRUCTURES: Multilevel thoracolumbar spondylosis pronounced at L3-4 and to a lesser extent L4-5 and L5-S1. 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 Sclerosis and the sacroiliac joints. Probable bony island, right acetabulum. Degenerative changes in the coxofemoral joints. CT/CT abdomen pelvis wo IV con IMPRESSION: Diverticular disease, sigmoid colon. Probable benign prostate hyperplasia. Malignancy cannot be excluded. 1 mm nonobstructing nephrolithiasis, right kidney. Coronary artery disease and atherosclerosis disease. Fleischner guidelines were followed. Electronically signed by: Nic Damon MD 03/14/2025 10:27 AM EDT RP
--- OUTSIDE RECORDS SUMMARY | 2025-03-14 07:43 | XMS_ITS | Clinical Summary ---
Author Organization [facility] Address [address] [place] [address] Care Team Providers Care Medical Secretary Teacher Name Role Phone Leni Resendez MD Primary Care Provider [phone] Allergies No known active allergies Medications Medication [...] age to complete this topic Care Teams Medical Secretary Teacher Relationship Specialty Start Date End Date Leni Resendez MD PCP - General Mash Grinder 01/22/17
--- OUTSIDE RECORDS SUMMARY | 2025-03-14 07:43 | XMS_ITS | Encounter Summary ---
Author Organization [facility] Address [address] [place] [address] Care Team Providers Care Rehabilitation Attendant Name Role Phone Leni Resendez MD Primary Care Provider [phone] Encounter Details Date Type Department Care Team Description 12/07/2019 Nurse Only [facility] [address] [place] [address] Pedro Luis Loco RN Social History Tobacco [...] on filedocumented in this encounter Care Teams Rehabilitation Attendant Relationship Specialty Start Date End Date Leni Resendez MD PCP - General Sexual Assault Social Worker 01/22/17 documented as of this encounter
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
--- OUTSIDE RECORDS SUMMARY | 2025-03-14 07:43 | XMS_ITS | Clinical Summary ---
Author Organization [facility] Address [address] [place] [phone] Phone Care Team Providers Care Advanced Manufacturing Associate Name Role Phone Leni Resendez MD Primary Care Provider [phone] Allergies No known active allergies Medications rosuvastatin [...] to his nasal septum issues. Will obtain [facility] records. Social History Tobacco Use Types Packs/Day [...] 9:00 AM EST Office Visit [facility] [address] [place] [address] [place] [address] Lisa Owen MD [address] [place] [phone] Health Maintenance Due Date Last Done Comments [...] VACCINE (#1) 2024 COVID-19 VACCINE (1 - 2024-2 6 season) 2025 RSV VACCINE (1 - 1-dose [...] MEDICARE PART A & B [facility] MEDEX SUPPLEMENT MEDICARE PART A & B [facility] SUPPLEMENT MEDICARE PART A & B [employer] MEDEX SUPPLEMENT MEDICARE PART A & B [employer] MEDEX SUPPLEMENT MEDICARE PART A & B [employer] MEDEX SUPPLEMENT MEDICARE PART A & B [employer] MEDEX SUPPLEMENT Care Teams Advanced Manufacturing Associate Relationship Specialty Start Date End Date Leni Resendez MD [address] [facility] [place] [address] PCP - General Internal Medicine 11/22/22 Additional Source Comments The information contained in this document represents components of the legal health record. It is not the complete legal health record.[facility]
[2025-03-14] MEDS: Barium Sulfate Oral (Berry) 450 ML ORAL.SUSP 900 ML PO (08:45)
== END 2025-03-14 07:41 | disposition home or self-care (01) ==
LOC: HO.CT 07:40
PROVIDERS: PCP Internal Medicine; Visit Provider Internal Medicine
DX: K57.92 Diverticulitis of intestine, part unspecified, without perforation or abscess without bleeding (principal)
CPT/HCPCS: 74176; Q9967

== ENCOUNTER → 2025-03-14 07:42 | Outpatient (BNV) | payer MEDICARE, SELFPAY | PROVIDERS: PCP Internal Medicine; Visit Provider Radiology Diagnostic Radiology | DX: K57.32 Diverticulitis of large intestine without perforation or abscess without bleeding (principal); N20.0 Calculus of kidney; I25.10 Atherosclerotic heart disease of native coronary artery without angina pectoris | CPT/HCPCS: 74176 ==

== ENCOUNTER → 2025-05-04 10:28 | Outpatient (REF) | payer MEDICARE, SELFPAY | LOC: HO.SL 10:28 | PROVIDERS: PCP Internal Medicine; Visit Provider Internal Medicine | DX: G47.30 Sleep apnea, unspecified (principal) | CPT/HCPCS: 95806 ==

== ENCOUNTER → 2025-05-04 10:54 | Outpatient (BNV) | payer MEDICARE, SELFPAY | PROVIDERS: PCP Internal Medicine; Visit Provider Psychiatry & Neurology Neurology | DX: G47.33 Obstructive sleep apnea (adult) (pediatric) (principal) | CPT/HCPCS: 95806 ==